=== PATIENT | female | born 1945 | race Caucasian/White ===

== ENCOUNTER 2020-07-14 15:00 | IRF | payer MEDICARE, BC, SELFPAY ==
--- NOTE | ~2020-07-14 | XR_ITS ---
EXAMINATION: XR chest 1V portable INDICATION: Shortness of breath, recent chest tube removal TECHNIQUE: Portable AP chest at 1316 hours COMPARISON: None available FINDINGS: There are bilateral pleural effusions, right greater than left. Displaced fractures of the right third through ninth ribs are noted. There is no pneumothorax. There are airspace opacities of t he lung bases, right greater than left. The heart size is normal. IMPRESSION: 1. Displaced fractures of the right third through ninth ribs. 2. Small pleural effusions, right greater than left. 3. Bibasilar airspace opacities, likely passive atelectasis. Reviewed, dictated and finalized at location A.
[2020-07-14 14:55] VITALS: BP 123/70; PULSE 100; RESP 20; TEMP 36.6; O2SAT 93
--- NOTE | 2020-07-14 15:30 | PM.IMHP ---
H&P: HPI History of Present Illness Date/Time: 07/14/20 16:31 Chief complaint: Rib fx's 3-9, A-FIB Narrative: Iesha Carbone is a 74 year old female she is right-handed and is here with the primary rehab impairment category of orthopedic/other The etiologic diagnosis is mildly displaced fractures of the right 3rd through 9th ribs secondary to a fall. The patient was examined [id number] because the examiner on July 14, 2020 at 3:30 p.m. H&P The patient is 74-year-old right-handed with a past medical history of hypertension who presented to a local hospital on July 01, 2020 after being found down in the basement floor by her . The patient reported being down for about 5 hours and hitting her head and falling on her right side. There was no reported loss of consciousness however she cannot be sure. The imaging demonstrated right rib fractures 3 through 9 and pneumo hemothorax. She was transferred to [facility] the same day. The patient had placement of right chest tube. Then she was noted to have a new onset of atrial fibrillation with rapid ventricular response. Cardiology was consulted and the patient was started on Cardizem drip. The rapid ventricular response remained uncontrolled and Cardiology titrated the Cardizem up and recommending anticoagulation with heparin or apixaban once cleared by the orthopedic/trauma. Cardiology also thought that the poor pain control might be contributing to the atrial fibrillation and heart rate elevations. Cardizem was ultimately weaned of and metoprolol tartrate was initiated at 12.5 milligram twice a day and heparin IV drip was added. The patient has been weaned from the heparin drip for over 24 hours and the rate is adequately controlled with diltiazem XR 240 milligram daily p.o. the patient was scheduled to undergo a [facility] TS procedure on July 04, 2020 however it was not completed due to intubation difficulty. There were multiple attempts and bedside bronchoscopy was performed with the of the question of thick mucus. She was extubated on July 05, 2020 and epidural was placed overnight for pain control. On July 06, 2020 the epidural was removed because it was not functioning properly. An echocardiogram on July 09, 2020 showed an ejection fraction of 70%. Currently the patient's pain is controlled with scheduled Tylenol and ibuprofen, lidocaine patches and Skelaxin and oxycodone p.r.n. patient is currently on room air. Patient will be discharged to rehab on Eliquis 5 milligram b.i.d. for DVT prophylaxis and this will be continued on to the patient sees a hydrogen operator for follow-up in 1 month. The patient has not traveled outside the [place] or had contact with someone who is ill that has traveled outside the [place] in the past 21 days. The patient has not traveled to an area of the [place] that is experiencing known transmission of the Coronavirus and has not had close personal contact with anyone that has. The patient does not have a fever. The patient is not experiencing lower respiratory illness symptoms. The patient had a negative COVID test on June 30, 2020 The therapies were initiated at the acute care facility and the patient was transferred to us from [facility] on July 14, 2020 The patient has had no major surgery in the last 10 days. The patient has had no falls in the past year. The patient has had no falls in the injury with injury in the past year. Past medical history hypertension Past surgical history breast implant and subsequent implant removal. Social history The patient has never smoked or abused drugs occasional alcohol use. Patient lives at home with her Leon who is able to assisted after discharge from rehab. They live in a 2 story home with the basement. There are 14 steps to the bathroom in 3 steps to enter the patient was independent in all ADLs prior with no assistive devices. The patient stated she has not had any major campos
--- NOTE | 2020-07-14 15:53 | PC.NURSE ---
This patient, Iesha Carbone, was admitted to [facility] Room 225-01. Patient/family oriented to hospital policies and general routines including ID bracelet, bed and alarms, visiting hours, pain management, procedures, bathroom and other care routines, personal items, smoking policy, room service/diet, and visiting hours. Information on how to activate the Rapid Response Team has been discussed. Patient/Family are encouraged to report perceived risks to care and to ask questions if they do not understand what they are told or what they should do.
[2020-07-14 16:18] VITALS: BMI 33.6
[2020-07-14 16:37] VITALS: BMI 36.9
[2020-07-14] MEDS: guaiFENesin 12 HR 600 MG TABCR PO (20:26)
[2020-07-14] MEDS: oxyCODONE HCL (*CRX) 5 MG TAB IR PO (20:40)
[2020-07-14 22:00] VITALS: BP 151/74; PULSE 93; RESP 19; TEMP 36.5; O2SAT 94
[2020-07-15] MEDS: oxyCODONE HCL (*CRX) 5 MG TAB IR PO ×2 (03:51→20:23)
[2020-07-15 05:26] LABS: Basophils Percent Auto 0.6 % (0.2-1.2); Eosinophils Absolute Auto 0.3 K/mm3 (0-0.3); Eosinophils Percent Auto 4.5 % (0-4.4); Hematocrit 27.5 % (37.0-47.0); Hemoglobin 8.9 g/dL (12.0-15.0); Immature Granulocyte Absolute 0.03 K/mm3 (0.00-0.031); Immature Granulocyte Percent A 0.4 % (0-0.5); Lymphocytes Absolute Auto 0.95 K/mm3 (0.9-3.2); Lymphocytes Percent Auto 13.1 % (18.3-44.2); Mean Corpuscular HGB Conc 32.4 g/dl (32-36); Mean Corpuscular Hemoglobin 32.2 pg (26-34); Mean Corpuscular Volume 99.6 fl (80-100); Mean Platelet Volume 9.2 fl (7.4-10.4); Monocytes Absolute Auto 0.6 K/mm3 (0.1-0.6); Monocytes Percent Auto 8.4 % (2.6-8.5); Neutrophils Absolute Auto 5.3 K/mm3 (1.3-6.7); Platelet Count Result 441 k/mm3 (150-375); Red Blood Count 2.76 M/mm3 (4.2-5.4); Red Cell Distribution Width 15.3 % (11.5-14.5); White Blood Count 7.3 K/mm3 (4.5-10.0)
[2020-07-15 05:40] LABS: Anion Gap 6 mmol/L (8-16); Blood Urea Nitrogen 14 mg/dL (7-17); Calcium 8.7 mg/dL (8.4-10.2); Carbon Dioxide 26 mmol/L (22-30); Chloride 102 mmol/L (98-107); Estimated CRCL calculation 78 ml/min; Estimated Glomerular Filt Rate > 60; Glucose 106 mg/dL (65-105); Potassium 4.2 mmol/L (3.4-5.0); Sodium 134 mmol/L (137-145)
[2020-07-15] MEDS: guaiFENesin 12 HR 600 MG TABCR PO ×2 (05:45→17:02)
[2020-07-15 06:00] VITALS: BP 147/76; PULSE 103; RESP 19; TEMP 36.2; O2SAT 93
[2020-07-15] MEDS: ACETAMINOPHEN 500 MG TABLET 1000 MG PO ×3 (08:47→17:01)
[2020-07-15] MEDS: APIXABAN 5 MG TABLET PO ×2 (08:47→17:02)
[2020-07-15] MEDS: CHOLECALCIFEROL 1,000 UNITS TABLET 1000 UNITS PO (08:48)
[2020-07-15] MEDS: LIDOCAINE 5% PATCH 1 PATCH TOPICAL (08:48)
[2020-07-15] MEDS: polyethylene glycoL 3350 17 GM POWD.PACK PO (08:48)
[2020-07-15] MEDS: METAXALONE 800 MG TABLET PO (08:48)
[2020-07-15 13:54] VITALS: BMI 36.9
[2020-07-15 14:00] VITALS: BP 157/79; PULSE 115; RESP 16; TEMP 36.8; O2SAT 93
--- NOTE | 2020-07-15 15:06 | PCNSR ---
On 07/15/20, the student, Halley Black, provided care and completed [facility] documentation on this patient. I have reviewed the student's documentation and agree with the findings.
--- NOTE | 2020-07-15 15:56 | RPD ---
INDIVIDUALIZED PLAN OF CARE FOR Iesha Carbone Brief Synthesis of Pre-Admission Screen, Post-Admission Evaluation and Therapy Evaluations: The patient presents to rehab for lost function due multiple rib fractures and new onset atrial fibrillation with RVR. Comorbidities include atrial fibrillation with RVR, hemopneumothorax, HTN, dyspnea on exertion, ABLA, hypercholesterolemia, diverticulosis, hypokalemia, hypocalcemia, and hyperglycemia. Post-op complications have included ABLA, acute post-traumatic pain, hemopneumothorax, HTN, dyspnea on exertion, hypercholesterolemia, hypokalemia, hypocalcemia, and hyperglycemia. The complexity of the patient's medical management, nursing, and therapy needs require an inpatient rehab hospital stay with a physician-led interdisciplinary team approach. The patient?s needs will be best met in an intensive program vs. at a lower level of care. The patient requires physician services for medical oversight, management of post-traumatic complications in setting of present comorbidities, and pain management. The patient requires nursing services for DVT prophylactics, cardiac observation, medication management and education, pressure relief, and wound care. Deficits include:ADLs, Balance, Endurance, Family Training/Education, Mobility, Pain Management, ROM, Safety, Strength, and Transfers. Hot Dip Plater/Case Management for: Discharge Planning and Patient/Family Counseling Physical Therapy: 5 days per week for 90 minutes. Treatments may include: Therapeutic Exercise, Gait Training, Neuromuscular Re-education, Transfer Training, Community Reintegration, Bed Mobility, Patient/Family Education, Wheelchair Mobility Group Therapy/Concurrent Therapy Rationales: -Improve attention span during functional activities in a distracted environment. -Enhance problem solving and/or adequate judgment skills during functional activities in a distracted environment. -Promote increased safety awareness in a distracted environment to reduce fall risk with functional tasks, transfers, and ambulation to allow a more safe, self-sufficient return to the home environment. -Improve dynamic balance skills to promote safety and independence with functional activities in a distracted environment for maximum gain. Occupational Therapy: 5 days per week for 90 minutes. Treatments may include: Therapeutic Exercise, Therapeutic Activity, Cognitive Training, Self-Care Transfer Training, Community Reintegration, Home Management, Patient/Family Education, Wheelchair Mobility Training, Energy Conservation Training Group Therapy/Concurrent Therapy Rationales: -Allow therapist to observe and teach generalization and carry-over of skills learned in individual therapy. -Enhance problem solving and sequencing skills during therapeutic activities in a distracted environment. -Promote increased safety awareness in a realistic setting to reduce fall risk with functional tasks due to visual and verbal distractions. -Increase functional level with ADLs, ADL transfers and use of adaptive equipment through therapeutic activities with others while promoting safety to allow a more safe, self-sufficient return home. Medical Prognosis: Good Anticipated Length of Stay: 10 days Rehab Goals: Eating Goal: 06-Independent Oral Hygiene Goal: 06-Independent Toileting Hygiene Goal: 06-Independent Shower/Bathe Self Goal: 06-Independent Upper Body Dressing Goal: 06-Independent Lower Body Dressing Goal: 06-Independent Putting On/Taking Off Footwear Goal: 06-Independent Rolling Left and Right Goal: 06-Independent Sit to Lying Goal: 06-Independent Lying to Sitting on Side of Bed Goal: 06-Independent Sit to Stand Goal: 06-Independent Chair/Yys-lm-Sjoma Transfer Goal: 06-Independent Toilet Transfer Goal: 06-Independent Car Transfer Goal: 06-Independent Walk 10' Goal: 06-Independent Walk 50' with Two Turns Goal: 06-Independent Walk 150' Goal: 06-Independent Walk 10' on Uneven Surface Goal
[2020-07-15 20:00] VITALS: PULSE 97; RESP 18; O2SAT 97
[2020-07-15 20:19] VITALS: BP 146/84; PULSE 97; RESP 18; TEMP 36.6; O2SAT 97
[2020-07-16 05:19] VITALS: BP 143/80; PULSE 99; RESP 20; TEMP 36.3; O2SAT 94
[2020-07-16] MEDS: guaiFENesin 12 HR 600 MG TABCR PO ×2 (06:56→18:29)
[2020-07-16] MEDS: APIXABAN 5 MG TABLET PO ×2 (08:45→17:40)
[2020-07-16] MEDS: ACETAMINOPHEN 500 MG TABLET 1000 MG PO ×3 (08:45→17:40)
[2020-07-16] MEDS: LIDOCAINE 5% PATCH 1 PATCH TOPICAL (08:46)
[2020-07-16] MEDS: CHOLECALCIFEROL 1,000 UNITS TABLET 1000 UNITS PO (08:46)
[2020-07-16] MEDS: polyethylene glycoL 3350 17 GM POWD.PACK PO (08:46)
[2020-07-16] MEDS: METAXALONE 800 MG TABLET PO (08:47)
--- NOTE | 2020-07-16 09:55 | PCPTNOTE ---
Iesha Carbone was evaluated for a wheeled walker on 07/16/2020 by this physical therapist. The wheeled walker will resolve patient's mobility limitations and will be used for mobility within the home. The patient can safely use the wheeled walker. ?The wheeled walker will resolve the patient?s mobility deficits, including gait, transfers and mobility.
[2020-07-16] MEDS: SALINE 0.65% NAS SOLN 44 ML BTL 1 SPRAY NASAL (12:11)
--- NOTE | 2020-07-16 12:27 | WPDNEURORHBP ---
Subjective Date/time seen: 07/16/20 12:27 Interval history: this 74-year-old woman is here with multiple rib fractures primary in the right side and in that background has had the atrial fibrillation which he continues to have and during therapy the heart rate will go up to 180 which is of concern in spite of being on the appropriate medication I have requested cardiology consult from our team to see if there is anything further needs to be done the medical treatment of her underlying atrial fibrillation the patient denies any headache nausea vomiting chest pain shortness of breath she does have a pain over the fractured ribs though Review of Systems Review of Systems: All systems reviewed & are unremarkable except as noted in HPI and below Functional Status Ambulation Ability Ability to Ambulate 10 Feet: Contact Guard Ability to Ambulate 50 Feet With 2 Turns: Contact Guard Ability to Ambulate 150 Feet: Minimum Assistance X 2 Ambulation Assistive Devices: Walker, Wheeled Transfers Ability Ability to Transfer In/Out of Chair: Contact Guard Exam Narrative: Exam Narrative: the patient is awake alert well oriented she feels fatigue and tired otherwise denies any headache nausea vomiting chest pain occasional shortness of breath is however with the therapy with heart rate goes up to 160 and 180 otherwise usually to remains around 80 and 110 of course in AFib ENT examination normal eye examination is normal strength is improving no lateralizing deficits noted apart from generalized weakness abdomen soft nontender extremities reveal no deformities Objective Data Vital Signs Vital Signs: Vital Signs - 24 hr 07/15/20 14:00 07/15/20 20:00 07/15/20 20:19 Temperature 36.8 C 36.6 C Pulse Rate 115 H 97 97 Respiratory Rate 16 18 18 Blood Pressure 157/79 H 146/84 H Pulse Oximetry 93 97 97 07/16/20 05:19 Temperature 36.3 C L Pulse Rate 99 Respiratory Rate 20 Blood Pressure 143/80 H Pulse Oximetry 94 Intake/Output Intake/Output: Intake & Output 07/13/20 07/14/20 07/15/20 07/16/20 23:59 23:59 23:59 23:59 Intake Total 240 680 360 Balance 240 680 360 Meds/Results Medications: Active Medications Generic Name Dose Route Start Last Admin Trade Name Freq PRN Reason Stop Dose Admin Acetaminophen 1,000 mg 07/15/20 09:00 07/16/20 12:10 Acetaminophen 500 Mg Tablet PO 1,000 mg TID VIRA Administration Albuterol 2.5 mg 07/14/20 18:44 Albuterol Sulfate Neb 2.5 Mg/0.5 Ml Inh INHALATION Q6HRT PRN Shortness Of Breath Or Wheezing Apixaban 5 mg 07/15/20 09:00 07/16/20 08:45 Apixaban 5 Mg Tablet PO 5 mg BID VIRA Administration Diltiazem HCl 240 mg 07/15/20 09:00 07/16/20 08:46 Diltiazem Hcl Cd 240 Mg Cap.Er.24h PO 240 mg DAILY VIRA Administration Guaifenesin 600 mg 07/14/20 18:00 07/16/20 06:56 Guaifenesin 12 Hr 600 Mg Tabcr PO 600 mg Q12H VIRA Administration Ipratropium [place] 0.5 mg 07/14/20 18:45 Ipratropium Br 0.02% Inh Soln 0.5 Mg/2.5 Ml Vial INHALATION Q6HRT PRN Shortness Of Breath Or Wheezing Lidocaine 1 patch 07/15/20 09:00 07/16/20 08:46 Lidocaine 5% Patch TOPICAL 1 patch DAILY VIRA Administration Metaxalone 800 mg 07/14/20 18:27 07/16/20 08:47 Metaxalone 800 Mg Tablet PO 800 mg TID PRN Administration Muscle Spasm Oxycodone HCl 5 mg 07/14/20 18:27 07/15/20 20:23 Oxycodone Hcl (*Crx) 5 Mg Tab Ir PO 5 mg Q4H PRN Administration Pain 7-10 Polyethylene Glycol 17 gm 07/15/20 09:00 07/16/20 08:46 Polyethylene Glycol 3350 17 Gm Powd.Pack PO 17 gm DAILY VIRA Administration Sodium Chloride 1 spray 07/16/20 09:10 07/16/20 12:11 Saline 0.65% Alli Soln 44 Ml Btl NASAL 1 spray Q4H PRN Administration Congestion Vitamin D 1,000 units 07/15/20 09:00 07/16/20 08:46 Cholecalciferol 1,000 Units Tablet PO 1,000 units DAILY VIRA Administration Progress Note: A&P Assessment and P
[2020-07-16 14:00] VITALS: BP 128/97; PULSE 97; RESP 20; TEMP 36.6; O2SAT 96
--- NOTE | 2020-07-16 15:34 | PM.CNCAR ---
Assessment and Plan Assessment and plan (1) Atrial fibrillation: Code(s): I48.91 - Unspecified atrial fibrillation Status: Acute Assessment and Plan: Patient is a 74 year-old woman with history of hypertension, CVA (2003, hemorrhagic, basal ganglia, with severely elevated BP), atrial fibrillation with rapid ventricular response, who is seen in cardiac consultation for atrial fibrillation with rapid ventricular response. -She has new onset atrial fibrillation with rapid ventricular response noted after her presenting fall. -Improve rate control with addition of metoprolol tartrate 25 mg bid. -Continue diltiazem ER 240 mg qd. -Continue apixaban. If she has recurrent falls, consider transition of apixaban to ASA. -She had normal thyroid studies at [facility]. -Obtain Mg, repeat BMP, CBC for anemia. -Obtain EKG. -Recently, she had echo 07/09/20 ([facility]): mild-moderately dilated (4.3 cm) ascending aorta, normal LV size, mild LVH, normal LVEF 70%, mild , mild pulmonary HTN (42 mmHg). -Anticipate outpatient evaluation for ischemia with Lexiscan nuclear stress testing. (2) Hypertension: Code(s): I10 - Essential (primary) hypertension Status: Acute Assessment and Plan: -BP mildy elevated. -Montor with addition of metoprolol. (3) Ascending aorta dilation: Code(s): I77.810 - Thoracic aortic ectasia Status: Acute Assessment and Plan: -Recently, she had CT 07/03/20 ([facility]): ectatic ascending aorta 4.5 x 4.7 cm. -Began metoprolol. -Needs f/u imaging as an outpatient. History of Present Illness History of Present Illness Consult date/time: 07/16/20 15:34 Patient is a 74 year-old woman with history of hypertension, CVA (2003, hemorrhagic, basal ganglia, with severely elevated BP), atrial fibrillation with rapid ventricular response, who is seen in cardiac consultation for atrial fibrillation with rapid ventricular response. Patient is currently in rehab at [facility] and was noted to have afib with RVR with activity, with HR increased to 160-180 bpm with activity. Previously, patient presented to [facility] 06/30/20 following fall. She reported dizziness while walking and fell, without syncope. She sustained displaced fractures to right 3rd through 9th ribs, with hemothorax, requiring right chest tube, subsequently removed. At [facility], she was noted to be in new onset afib with RVR. Patient denies any history of DC or CHF. She denies left chest pain, but reports right chest pleuritic pain. She reports occasional exertional dyspnea. She denies palpitations, edema, or PND. She denies tobacco use and consumes 1 drink of alcohol weekly. This admission, CXR 07/16/20: small pleural effusions, R > L. Recently, she had echo 07/09/20 ([facility]): mild-moderately dilated (4.3 cm) ascending aorta, normal LV size, mild LVH, normal LVEF 70%, mild , mild pulmonary HTN (42 mmHg). Recently, she had CT 07/03/20 ([facility]): ectatic ascending aorta 4.5 x 4.7 cm. Reason For Visit: Rib fx's 3-9, A-FIB Review of Systems Review of Systems: All systems reviewed & are unremarkable except as noted in HPI and below PMFSH Past Medical History Medical History Cerebral arteriosclerosis with history of previous stroke Hypertension Family History Family History Mother Colon cancer Social History Social History Smoking status: Never smoker Alcohol intake: former Drinks per week: 1 Substance use: never Spiritual care concerns: Yes Meds Home Medications and Allergies Home Medications Medication Instructions Recorded Confirmed Type acetaminophen 500 mg PO QID PRN 07/14/20 07/14/20 History apixaban 5 mg PO BID 07/14/20 07/14/20 History cholecalciferol (vitamin D3) 25 mcg PO DAILY 07/14/20 07/14/20 History diltiazem HCl 240 mg PO DAILY 07/14/20
--- NOTE | 2020-07-16 16:38 | PC.NURSE ---
educational material given to patient and re/to chest wall pain, eliquis, atrial fib, and rib fractures
[2020-07-16 22:00] VITALS: BP 151/83; PULSE 91; RESP 19; TEMP 36.7; O2SAT 95
[2020-07-16 22:04] VITALS: PULSE 88
[2020-07-16] MEDS: METOPROLOL TARTRATE 25 MG TABLET PO (22:04)
[2020-07-17] MEDS: BENZOCAINE/MENTHOL (*BKC) 18 EA LOZENGE 1 LOZENGE PO (01:03)
--- NOTE | 2020-07-17 05:00 | ECG_ITS ---
Measurements Intervals [place] Rate: 136 P: [place]: 0 QRS: -6 QRSD: 107 T: 155 QT: 287 QTc: 432 Interpretive Statements ATRIAL FIBRILLATION WITH RAPID VENTRICULAR RESPONSE DELAYED PRECORDIAL R/S TRANSITION LEFT VENTRICULAR HYPERTROPHY WITH ST-T CHANGE INFERIOR INFARCT, AGE INDETERMINATE ST-T WAVE ABNORMALITY IN LAT/HIGH LAT LEADS- CONSIDER ISCHEMIA ABNORMAL ECG Electronically Signed On 07-17-2020 11:59:33 CDT by Baldev Ho D.O.
[2020-07-17 05:28] LABS: Basophils Percent Auto 0.5 % (0.2-1.2); Eosinophils Absolute Auto 0.3 K/mm3 (0-0.3); Eosinophils Percent Auto 4.9 % (0-4.4); Hematocrit 28.6 % (37.0-47.0); Hemoglobin 9.2 g/dL (12.0-15.0); Immature Granulocyte Absolute 0.03 K/mm3 (0.00-0.031); Immature Granulocyte Percent A 0.5 % (0-0.5); Lymphocytes Absolute Auto 1.02 K/mm3 (0.9-3.2); Lymphocytes Percent Auto 16.8 % (18.3-44.2); Mean Corpuscular HGB Conc 32.2 g/dl (32-36); Mean Corpuscular Hemoglobin 32.3 pg (26-34); Mean Corpuscular Volume 100.4 fl (80-100); Monocytes Absolute Auto 0.6 K/mm3 (0.1-0.6); Monocytes Percent Auto 9.4 % (2.6-8.5); Neutrophils Absolute Auto 4.1 K/mm3 (1.3-6.7); Neutrophils Percent Auto 67.9 % (45.5-73.1); Platelet Count Result 475 k/mm3 (150-375); Red Blood Count 2.85 M/mm3 (4.2-5.4); Red Cell Distribution Width 15.3 % (11.5-14.5); White Blood Count 6.1 K/mm3 (4.5-10.0)
[2020-07-17 05:43] LABS: Anion Gap 7 mmol/L (8-16); Blood Urea Nitrogen 12 mg/dL (7-17); Calcium 8.9 mg/dL (8.4-10.2); Carbon Dioxide 27 mmol/L (22-30); Chloride 103 mmol/L (98-107); Estimated CRCL calculation 90 ml/min; Estimated Glomerular Filt Rate > 60; Glucose 109 mg/dL (65-105); Sodium 137 mmol/L (137-145)
[2020-07-17 06:00] VITALS: BP 144/75; PULSE 94; RESP 19; TEMP 36.1; O2SAT 95
[2020-07-17] MEDS: guaiFENesin 12 HR 600 MG TABCR PO (06:02)
[2020-07-17] MEDS: ONDANSETRON HCL ODT 4 MG TABLET PO (10:03)
[2020-07-17] MEDS: LIDOCAINE 5% PATCH 1 PATCH TOPICAL (10:04)
[2020-07-17] MEDS: APIXABAN 5 MG TABLET PO (10:04)
[2020-07-17] MEDS: METAXALONE 800 MG TABLET PO (10:04)
[2020-07-17 10:05] VITALS: PULSE 96
[2020-07-17] MEDS: METOPROLOL TARTRATE 25 MG TABLET PO (10:05)
[2020-07-17] MEDS: CHOLECALCIFEROL 1,000 UNITS TABLET 1000 UNITS PO (10:05)
[2020-07-17] MEDS: ACETAMINOPHEN 500 MG TABLET 1000 MG PO (10:07)
--- NOTE | 2020-07-17 10:48 | PM.PNCARD ---
Progress Note: A&P Assessment and Plan (1) Atrial fibrillation: Code(s): I48.91 - Unspecified atrial fibrillation Status: Acute Assessment and Plan: Patient is a 74 year-old woman with history of hypertension, CVA (2004, hemorrhagic, basal ganglia, with severely elevated BP), atrial fibrillation with rapid ventricular response, who is seen in cardiac consultation for atrial fibrillation with rapid ventricular response. she is back in AFib today with rapid ventricular response again, she needs to be transferred to telemetry start Cardizem drip for better rate control. -Recently, she had echo 07/09/20 ([facility]): mild-moderately dilated (4.3 cm) ascending aorta, normal LV size, mild LVH, normal LVEF 70%, mild , mild pulmonary HTN (42 mmHg). -Anticipate outpatient evaluation for ischemia with Lexiscan nuclear stress testing. (2) Hypertension: Code(s): I10 - Essential (primary) hypertension Status: Acute Assessment and Plan: -BP mildy elevated. -Montor with addition of metoprolol. (3) Ascending aorta dilation: Code(s): I77.810 - Thoracic aortic ectasia Status: Acute Assessment and Plan: -Recently, she had CT 07/03/20 ([facility]): ectatic ascending aorta 4.5 x 4.7 cm. -Began metoprolol. -Needs f/u imaging as an outpatient. Subjective Date/time seen: 07/17/20 10:48 She feels fair today, complains of nausea, noted to have tachycardia again today. No chest pain no abdominal pain Exam Const: General: cooperative, healthy appearing, no acute distress, well developed and alert Nutritional Appearance: well nourished Orientation/consciousness: oriented to person, oriented to place, oriented to time and patient oriented x3 HENMT: Head: normal to inspection and normocephalic Ears: external ears normal General nose exam: No nasal discharge present Mouth: Yes moist mucous membranes Eyes: General: appearance normal, both eyes and all related structures Conjunctivae: conjunctivae normal Sclera: sclerae normal Pupils: Equal, round and reactive pupils present EOM: EOMs intact bilaterally Neck: Neck: normal visual inspection and No JVD Carotids: normal carotid upstroke and no bruits Chest: Chest palpation & inspection: localized rib tenderness with anteroposterior compression Resp: Effort & Inspection: normal respiratory effort, able to speak in complete sentences and no respiratory distress Auscultation: diminished lung sounds on the right Cardio: Jugular venous distension: no JVD Palpation: normal PMI Rate: regular rate Rhythm: abnormal rhythm irregularly irregular Heart sounds: S1 normal heart sound present, S2 normal heart sound present and Murmur heart sound present systolic I/ Peripheral pulses: Peripheral pulses 2+ throughout GI: Inspection: normal to inspection and non-distended Skin: General skin exam: normal color Rashes: no rashes Neuro: General: oriented to person, oriented to place, oriented to time, patient oriented x3, moves all extremities, no focal motor deficits and CN's II-XI intact bilaterally Cranial nerves: Yes Equal, round and reactive pupils present Cognition (Neuro): normal cognition Speech: normal speech Motor exam (neuro): 5/5 motor strength present throughout Extrem: General: normal to inspection Psych: Appearance: grossly normal Mental Status: mental status grossly normal Objective Data Vital Signs Vital Signs: Vital Signs - 24 hr 07/16/20 14:00 07/16/20 22:00 07/16/20 22:04 Temperature 36.6 C 36.7 C Pulse Rate 97 91 88 Respiratory Rate 20 19 Blood Pressure 128/97 H 151/83 H Pulse Oximetry 96 95 07/17/20 06:00 07/17/20 10:05 Temperature 36.1 C L Pulse Rate 94 96 Respiratory Rate 19 Blood Pressure 144/75 H Pulse Oximetry 95 Intake/Output Intake/Output: Intake & Output 07/14/20 07/15/20 07/16/20 07/17/20 23:59 23:59 23:59 23:59 Intake Total 240 337 840 480 Balance 240 023 840 480 Meds/Results Medications: Ac
--- NOTE | 2020-07-17 12:18 | WPDNEURORHBP ---
Subjective Date/time seen: 07/17/20 12:18 Interval history: this 74-year-old woman is here because of multiple rib fracture and also status post chest tube placement for the hemopneumothorax from which she is improving however the issue at hand is predominantly atrial fibrillation with rapid ventricular response for which I have consulted the him assistant here and recommends for the patient to be monitored on the telemetry for better control of her heart rate with Cardizem drip which I have no problem with the patient otherwise remains stable except occasional nausea and vomiting needing Zofran denies any chest pain she does have a history of asthma for which appropriate inhaler has been recommended by the him assistant whom I spoke with briefly prior to him leaving the floor The patient denies any lateralizing symptoms but she generally weak fatigue and exhausted and no lateralizing deficits and Review of Systems Review of Systems: All systems reviewed & are unremarkable except as noted in HPI and below Functional Status Ambulation Ability Ability to Ambulate 10 Feet: Contact Guard Ability to Ambulate 50 Feet With 2 Turns: Contact Guard Ability to Ambulate 150 Feet: Minimum Assistance X 2 Ambulation Assistive Devices: Walker, Wheeled Transfers Ability Ability to Transfer In/Out of Chair: Standby Assistance Exam Narrative: Exam Narrative: patient is awake and alert well oriented not any distress head is normocephalic eyes here no so normal neck is supple lungs reveal bilateral rhonchi cardiovascular examination reveals irregularly irregular rhythm with heart rate around 100 abdomen is soft nontender extremities reveal no deformities no lateralizing focal motor deficit or sensory deficit is noted The site of the chest tube placement is clean and healthy in the chest x-ray self explanatory Objective Data Vital Signs Vital Signs: Vital Signs - 24 hr 07/16/20 14:00 07/16/20 22:00 07/16/20 22:04 Temperature 36.6 C 36.7 C Pulse Rate 97 91 88 Respiratory Rate 20 19 Blood Pressure 128/97 H 151/83 H Pulse Oximetry 96 95 07/17/20 06:00 07/17/20 10:05 Temperature 36.1 C L Pulse Rate 94 96 Respiratory Rate 19 Blood Pressure 144/75 H Pulse Oximetry 95 Intake/Output Intake/Output: Intake & Output 07/14/20 07/15/20 07/16/20 07/17/20 23:59 23:59 23:59 23:59 Intake Total 240 680 840 480 Balance 240 680 840 480 Meds/Results Medications: Active Medications Generic Name Dose Route Start Last Admin Trade Name Freq PRN Reason Stop Dose Admin Acetaminophen 1,000 mg 07/15/20 09:00 07/17/20 10:07 Acetaminophen 500 Mg Tablet PO 1,000 mg TID VIRA Administration Albuterol 2.5 mg 07/14/20 18:44 Albuterol Sulfate Neb 2.5 Mg/0.5 Ml Inh INHALATION Q6HRT PRN Shortness Of Breath Or Wheezing Apixaban 5 mg 07/15/20 09:00 07/17/20 10:04 Apixaban 5 Mg Tablet PO 5 mg BID VIRA Administration Benzocaine 1 lozenge 07/17/20 00:15 07/17/20 01:03 Benzocaine/Menthol (*Bkc) 18 Ea Lozenge PO 1 lozenge PRN PRN Administration Sore Throat Diltiazem HCl 240 mg 07/15/20 09:00 07/17/20 10:05 Diltiazem Hcl Cd 240 Mg Cap.Er.24h PO 240 mg DAILY VIRA Administration Guaifenesin 600 mg 07/14/20 18:00 07/17/20 06:02 Guaifenesin 12 Hr 600 Mg Tabcr PO 600 mg Q12H VIRA Administration Ipratropium Mcintosh 0.5 mg 07/14/20 18:45 Ipratropium Br 0.02% Inh Soln 0.5 Mg/2.5 Ml Vial INHALATION Q6HRT PRN Shortness Of Breath Or Wheezing Lidocaine 1 patch 07/15/20 09:00 07/17/20 10:04 Lidocaine 5% Patch TOPICAL 1 patch DAILY VIRA Administration Metaxalone 800 mg 07/14/20 18:27 07/17/20 10:04 Metaxalone 800 Mg Tablet PO 800 mg TID PRN Administration Muscle Spasm Metoprolol Tartrate 25 mg 07/16/20 21:30 07/17/20 10:05 Metoprolol Tartrate 25 Mg Tablet PO 25 mg Q12HR VIRA Administration Ondansetron HCl 4 mg 07/17/20 09:51 07/17/20 10:03
--- NOTE | 2020-07-18 08:27 | PCPTNOTE ---
Patient unable to receive full minutes this date due to transfer to acute medical floor secondary to cardiac issues.
[2020-07-19 16:33] VITALS: BP 119/65; PULSE 80; RESP 16; TEMP 36.3; O2SAT 96
[2020-07-19] MEDS: dilTIAZem HCL TAB 30 MG, dilTIAZem HCL TAB 60 MG 90 MG PO ×2 (17:44→23:48)
--- NOTE | 2020-07-19 18:43 | PC.NURSE ---
Spoke with Dr Coronel regarding Eliquis and that it was not continued by hospitalist for her return to [facility]. Dr Coronel wanted medication to be resumed due to the fact that patient has a higher risk for stroke without the medication. Patient was educated about the risks versus benefits of taking the medication. Patient also made aware that she can also refuse the medication. Patient would like her neurologist to be updated and included in the discussion about the medication due to her having an ascending aortic aneurysm . Patient updated that may not be able to get ahold of her neurologist until wednesday. Patient and spouse okay with that. Her neurologist is Dr Ja Samaniego at [facility] and number [phone]. Dr Lisha العلي and updated as well and will also speak with patient tomorrow 07/20/20. will continue to monitor.
[2020-07-19] MEDS: IPRATROPIUM BR 0.02% INH SOLN 0.5 MG/2.5 ML VIAL INHALATION (20:29)
[2020-07-19] MEDS: ALBUTEROL SULFATE NEB 2.5 MG/0.5 ML INH INHALATION (20:29)
[2020-07-19 20:32] VITALS: PULSE 95; RESP 18
[2020-07-19 20:40] VITALS: BP 124/73; PULSE 70; RESP 18; TEMP 36.4; O2SAT 95
[2020-07-19] MEDS: APIXABAN 5 MG TABLET PO (20:44)
[2020-07-19 20:45] VITALS: PULSE 70
[2020-07-19] MEDS: METOPROLOL TARTRATE 25 MG TABLET PO (20:45)
[2020-07-19] MEDS: guaiFENesin 12 HR 600 MG TABCR PO (20:46)
[2020-07-19] MEDS: FLUTICASONE PROPIONATE 0.05% NA SPR 16 GM BTL (*BKC) 1 SPRAY NASAL (20:46)
[2020-07-19] MEDS: ACETAMINOPHEN 500 MG TABLET 1000 MG PO (20:47)
[2020-07-20] VITALS (14 sets, daily range): BP systolic 116–143; BP diastolic 67–86; PULSE 84–94; RESP 16–22; TEMP 35.8–36.2; O2SAT 96–99
[2020-07-20] MEDS: IPRATROPIUM BR 0.02% INH SOLN 0.5 MG/2.5 ML VIAL INHALATION ×4 (02:57→20:54)
[2020-07-20] MEDS: ALBUTEROL SULFATE NEB 2.5 MG/0.5 ML INH INHALATION ×4 (02:57→20:54)
[2020-07-20] MEDS: ACETAMINOPHEN 500 MG TABLET 1000 MG PO ×3 (05:46→20:48)
[2020-07-20] MEDS: dilTIAZem HCL TAB 30 MG, dilTIAZem HCL TAB 60 MG 90 MG PO ×4 (05:46→23:10)
[2020-07-20] MEDS: CHOLECALCIFEROL 1,000 UNITS TABLET 1000 UNITS PO (09:16)
[2020-07-20] MEDS: APIXABAN 5 MG TABLET PO ×2 (09:16→20:46)
[2020-07-20] MEDS: FLUTICASONE PROPIONATE 0.05% NA SPR 16 GM BTL (*BKC) 1 SPRAY NASAL ×2 (09:17→20:47)
[2020-07-20] MEDS: DIGOXIN TAB 125 MCG TABLET PO (09:17)
[2020-07-20] MEDS: guaiFENesin 12 HR 600 MG TABCR PO ×2 (09:17→20:46)
[2020-07-20] MEDS: LIDOCAINE 5% PATCH 1 PATCH TRANSDERM (09:18)
[2020-07-20] MEDS: LORATADINE 10 MG TABLET PO (09:18)
[2020-07-20] MEDS: METOPROLOL TARTRATE 25 MG TABLET PO ×2 (09:18→20:46)
[2020-07-20] MEDS: polyethylene glycoL 3350 17 GM POWD.PACK PO (09:18)
--- NOTE | 2020-07-20 10:02 | PM.PNCARD ---
Progress Note: A&P Assessment and Plan (1) Atrial fibrillation: Onset Date: ~06/2020 Code(s): I48.91 - Unspecified atrial fibrillation Status: Inactive Assessment and Plan: Patient is a 74 year-old woman with history of hypertension, CVA (2004, hemorrhagic, basal ganglia, with severely elevated BP), atrial fibrillation with rapid ventricular response, who is seen in cardiac consultation for atrial fibrillation with rapid ventricular response. she is back in AFib today with rapid ventricular response again, she needs to be transferred to telemetry start Cardizem drip for better rate control. -Recently, she had echo 07/09/20 (U): mild-moderately dilated (4.3 cm) ascending aorta, normal LV size, mild LVH, normal LVEF 70%, mild , mild pulmonary HTN (42 mmHg). -Anticipate outpatient evaluation for ischemia with Lexiscan nuclear stress testing. (2) Hypertension: Code(s): I10 - Essential (primary) hypertension Status: Chronic Assessment and Plan: -BP mildy elevated. -Montor with addition of metoprolol. (3) Ascending aorta dilation: Code(s): I77.810 - Thoracic aortic ectasia Status: Chronic Assessment and Plan: -Recently, she had CT 07/03/20 (U): ectatic ascending aorta 4.5 x 4.7 cm. -Began metoprolol. -Needs f/u imaging as an outpatient. Subjective Date/time seen: 07/20/20 10:02 she feels much better today, no chest pain except for occasional chest pain with the rib fracture upon deep inspiration but no shortness of breath no nausea Exam Const: General: cooperative, healthy appearing, no acute distress, well developed and alert Nutritional Appearance: well nourished Orientation/consciousness: oriented to person, oriented to place, oriented to time and patient oriented x3 HENMT: Head: normal to inspection and normocephalic Ears: external ears normal General nose exam: No nasal discharge present Mouth: Yes moist mucous membranes Eyes: General: appearance normal, both eyes and all related structures Conjunctivae: conjunctivae normal Sclera: sclerae normal Pupils: Equal, round and reactive pupils present EOM: EOMs intact bilaterally Neck: Neck: normal visual inspection and No JVD Carotids: normal carotid upstroke and no bruits Chest: Chest palpation & inspection: localized rib tenderness with anteroposterior compression Resp: Effort & Inspection: normal respiratory effort, able to speak in complete sentences and no respiratory distress Auscultation: diminished lung sounds on the right Cardio: Jugular venous distension: no JVD Palpation: normal PMI Rate: regular rate Rhythm: abnormal rhythm irregularly irregular Heart sounds: S1 normal heart sound present, S2 normal heart sound present and Murmur heart sound present systolic I/ Peripheral pulses: Peripheral pulses 2+ throughout GI: Inspection: normal to inspection and non-distended Skin: General skin exam: normal color Rashes: no rashes Neuro: General: oriented to person, oriented to place, oriented to time, patient oriented x3, moves all extremities, no focal motor deficits and CN's II-XI intact bilaterally Cranial nerves: Yes Equal, round and reactive pupils present Cognition (Neuro): normal cognition Speech: normal speech Motor exam (neuro): 5/5 motor strength present throughout Extrem: General: normal to inspection Psych: Appearance: grossly normal Mental Status: mental status grossly normal Objective Data Vital Signs Vital Signs: Vital Signs - 24 hr 07/19/20 16:33 07/19/20 20:32 07/19/20 20:40 Temperature 36.3 C L 36.4 C L Pulse Rate 80 95 70 Pulse Rate [At Rest Prior to Therapy Session] Respiratory Rate 16 18 18 Blood Pressure 119/65 124/73 Pulse Oximetry 96 95 Pulse Oximetry [At Rest Prior to Therapy Session] 07/19/20 20:45 07/20/20 02:50 07/20/20 02:59 Temperature Pulse Rate 70 94 94 Pulse Rate [At Rest Prior to Therapy Session] Respiratory Rate 18 18 Bloo
--- NOTE | 2020-07-20 14:32 | WPDNEURORHBP ---
Subjective Date/time seen: 07/20/20 14:32 74 years old lady with right-sided 3rd through 9th ribs fracture secondary to fall in addition to the history of atrial fibrillation, hypertension, receiving physical therapy and occupational therapy on the rehab floor. 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 as well for the atrial fibrillation has been on Cardizem drip as well and documented thoracic aortic ectasia chronic in nature Functional Status Ambulation Ability Ability to Ambulate 10 Feet: Standby Assistance Ability to Ambulate 50 Feet With 2 Turns: Standby Assistance Ability to Ambulate 150 Feet: Standby Assistance Ambulation Assistive Devices: Walker, Wheeled Transfers Ability Ability to Transfer In/Out of Chair: Standby Assistance Exam Narrative: Exam Narrative: reveals her to be awake alert in no obvious acute distress, head normocephalic, ear nose throat examination normal, neck is supple with no cervical bruit, heart irregular, lungs clear with no rhonchi or crepitations, abdomen is soft with no organomegaly, and neuro examination essentially unchanged Objective Data Vital Signs Vital Signs: Vital Signs - 24 hr 07/19/20 16:33 07/19/20 20:32 07/19/20 20:40 Temperature 36.3 C L 36.4 C L Pulse Rate 80 95 70 Pulse Rate [At Rest Prior to Therapy Session] Respiratory Rate 16 18 18 Blood Pressure 119/65 124/73 Pulse Oximetry 96 95 Pulse Oximetry [At Rest Prior to Therapy Session] 07/19/20 20:45 07/20/20 02:50 07/20/20 02:59 Temperature Pulse Rate 70 94 94 Pulse Rate [At Rest Prior to Therapy Session] Respiratory Rate 18 18 Blood Pressure Pulse Oximetry Pulse Oximetry [At Rest Prior to Therapy Session] 07/20/20 05:15 07/20/20 08:14 07/20/20 08:21 Temperature 35.8 C L Pulse Rate 85 92 92 Pulse Rate [At Rest Prior to Therapy Session] Respiratory Rate 20 Blood Pressure 141/67 H Pulse Oximetry 96 Pulse Oximetry [At Rest Prior to Therapy Session] 07/20/20 08:30 07/20/20 09:17 07/20/20 09:18 Temperature Pulse Rate 92 92 Pulse Rate [At Rest Prior to Therapy Session] 86 Respiratory Rate Blood Pressure Pulse Oximetry Pulse Oximetry [At Rest Prior to Therapy Session] 96 07/20/20 13:15 07/20/20 14:00 Temperature 36.2 C L Pulse Rate 90 92 Pulse Rate [At Rest Prior to Therapy Session] Respiratory Rate 20 Blood Pressure 116/74 Pulse Oximetry 96 Pulse Oximetry [At Rest Prior to Therapy Session] Intake/Output Intake/Output: Intake & Output 07/17/20 07/18/20 07/19/20 07/20/20 23:59 23:59 23:59 23:59 Intake Total 480 480 Balance 480 480 Meds/Results Medications: Active Medications Generic Name Dose Route Start Last Admin Trade Name Freq PRN Reason Stop Dose Admin Acetaminophen 1,000 mg 07/19/20 22:00 07/20/20 13:10 Acetaminophen 500 Mg Tablet PO 1,000 mg Q8HR VIRA Administration Albuterol 2.5 mg 07/19/20 20:00 07/20/20 13:13 Albuterol Sulfate Neb 2.5 Mg/0.5 Ml Inh INHALATION 2.5 mg Q6HRT VIRA Administration Apixaban 5 mg 07/19/20 21:00 07/20/20 09:16 Apixaban 5 Mg Tablet PO 5 mg Q12HR VIRA Administration Digoxin 125 mcg 07/20/20 09:00 07/20/20 09:17 Digoxin Tab 125 Mcg Tablet PO 125 mcg QAM VIRA Administration Diltiazem HCl 30 mg/ Diltiazem 90 mg 07/19/20 18:00 07/20/20 13:10 HCl 60 mg PO 90 mg Q6HR VIRA Administration Fluticasone Propionate 1 spray 07/19/20 21:00 07/20/20 09:17 Fluticasone Propionate 0.05% Na Spr 16 Gm Btl (*Bkc) NASAL 1 spray Q12HR VIRA Administration Guaifenesin 600 mg 07/19/20 21:00 07/20/20 09:17 Guaifenesin 12 Hr 600 Mg Tabcr PO 600 mg Q12HR VIRA Administration Ipratropium [place] 0.5 mg 07/19/20 20:00 07/20/20 13:13 Ipratropium Br 0.02% Inh Soln 0.5 M
[2020-07-20 23:32] LABS: Add Urine Microscopic? YES; Appearance Urine Clear (Clear); Bacteria Urine Trace /hpf; Bilirubin Urine Negative (Negative); Blood Urine Negative (Negative); Color Urine Yellow (Yellow); Glucose Urine UA Negative (Negative); Ketones Urine Negative (Negative); Leukocyte Esterase Ur 2+ LEU/UL (Negative); Nitrate Urine Positive (Negative); Protein Urine Negative (Negative); Squamous Epithelial Cell Urine Occasional /hpf (Few); Urobilinogen Urine Negative mg/dL (<2.0); WBC Urine >75 /hpf
[2020-07-21] VITALS (14 sets, daily range): BP systolic 120–144; BP diastolic 70–84; PULSE 75–93; RESP 16–20; TEMP 36.2–36.6; O2SAT 96–99
[2020-07-21] MEDS: ALBUTEROL SULFATE NEB 2.5 MG/0.5 ML INH INHALATION ×4 (02:59→20:52)
[2020-07-21] MEDS: IPRATROPIUM BR 0.02% INH SOLN 0.5 MG/2.5 ML VIAL INHALATION ×4 (02:59→20:52)
[2020-07-21] MEDS: ACETAMINOPHEN 500 MG TABLET 1000 MG PO ×3 (06:07→20:32)
[2020-07-21] MEDS: dilTIAZem HCL TAB 30 MG, dilTIAZem HCL TAB 60 MG 90 MG PO ×4 (06:07→23:41)
[2020-07-21] MEDS: FLUTICASONE PROPIONATE 0.05% NA SPR 16 GM BTL (*BKC) 1 SPRAY NASAL ×2 (09:05→20:31)
[2020-07-21] MEDS: LORATADINE 10 MG TABLET PO (09:05)
[2020-07-21] MEDS: DIGOXIN TAB 125 MCG TABLET PO (09:06)
[2020-07-21] MEDS: APIXABAN 5 MG TABLET PO ×2 (09:06→20:32)
[2020-07-21] MEDS: LIDOCAINE 5% PATCH 1 PATCH TRANSDERM (09:06)
[2020-07-21] MEDS: guaiFENesin 12 HR 600 MG TABCR PO ×2 (09:06→20:32)
[2020-07-21] MEDS: CHOLECALCIFEROL 1,000 UNITS TABLET 1000 UNITS PO (09:06)
[2020-07-21] MEDS: METOPROLOL TARTRATE 25 MG TABLET PO ×2 (09:07→20:32)
[2020-07-21] MEDS: polyethylene glycoL 3350 17 GM POWD.PACK PO (09:07)
--- NOTE | 2020-07-21 14:07 | WPDREHABHP ---
H&P: HPI History of Present Illness Date/Time: 07/21/20 14:07 74 years old old lady admitted to the rehab floor with right-sided 3rd through 9th ribs fracture secondary to fall in addition to the history of atrial fibrillation, hypertension, continues to receive the physical therapyand occupational therapy on the rehab, floor this morning she was complaining of increasing difficulties in breathing, her UA was slightly abnormal which is being cultured. Chief complaint: Rib fx's 3-9, A-FIB Narrative: Iesha Carbone is a 74 year old female Review of Systems Review of Systems All systems reviewed & are unremarkable except as noted in HPI and below PMFSH Past Medical History Medical History Ascending aorta dilation Mild to moderate dilation of the ascending aorta (4.3 cm) noted on echocardiogram on 07/09/2020. Atrial fibrillation (~06/2020) Workup at outside facility was essentially unremarkable with a normal TSH and echocardiogram showing normal left ventricular size, mild LVH, normal LVEF of 70%, mild aortic stenosis, and mild pulmonary hypertension (42 mmHg). Colon polyps Hemorrhagic stroke (~2003) Basal ganglia hemorrhagic stroke attributed to severely elevated blood pressure. No significant residual deficits however on occasion she will have very mild paresthesias of her left upper extremity. Hypertension Traumatic fracture of ribs of right side with pneumothorax (~07/01/20) Traumatic right rib fractures, 3 through 9, with pneumohemothorax. Initially she was to have a vats procedure but that was canceled due to difficulties with intubation. Surgical History Surgical History History of breast augmentation With subsequent removal of implants. Family History Family History Mother Colon cancer Father Aortic aneurysm Sibling Guillain-[place] syndrome Sibling Pancreatic cancer Social History Social History (Updated 07/17/20 @ 16:44 by Yaritza Sanchez PA-C) Social History: Surrogate decision maker: Leon Carbone, spouse. Code status: Full code. Smoking status: Never smoker Alcohol intake: current Drinks per week: 1 Substance use: never Substance use type: does not use Additional living arrangements comments: Resides with her in [place]. She has no biological children. 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 Spiritual care concerns: No Meds Home Medications and Allergies Home Medications Medication Instructions Recorded Confirmed Type acetaminophen 1,000 mg PO TID 07/14/20 07/17/20 History cholecalciferol (vitamin D3) 25 mcg PO DAILY 07/14/20 07/17/20 History guaifenesin [Mucinex] 600 mg PO Q12H 07/14/20 07/17/20 History lidocaine [Lidoderm] 1 patch TOPICAL DAILY 07/14/20 07/17/20 History metaxalone 800 mg PO TID PRN 07/14/20 07/17/20 History oxycodone 5 mg PO Q4H PRN 07/14/20 07/17/20 History polyethylene glycol 3350 [Miralax] 17 g PO DAILY 07/14/20 07/17/20 History albuterol sulfate 2.5 mg INHALATION Q6H 07/17/20 07/17/20 History ipratropium bromide 0.5 mg INHALATION Q6H 07/17/20 07/17/20 History metoprolol tartrate 25 mg PO Q12H 07/17/20 07/17/20 History ondansetron HCl 4 mg PO Q6H PRN 07/17/20 07/17/20 History sodium chloride 2 spray INTRANASAL Q4H PRN 07/17/20 07/17/20 History digoxin 125 mcg PO QAM #60 tablet 07/19/20 Rx diltiazem HCl 90 mg PO Q6HR #120 tablet 07/19/20 Rx fluticasone propionate 1 spray INTRANASAL Q12HR #9.9 ml 07/19/20 Rx loratadine 10 mg PO QAM #30 tablet 07/19/20 Rx Allergies Allergy/AdvReac Type Severity Reaction Status Date / Time cephalexin [From Keflex] Allergy Rash Verified 07/17/20 11:19 lisinopril [From Zestril] Allergy Rash Verified 07/17/20 11:18 Fish Containing Products AdvReac Severe Swelling Verified 07/17/20 11:20 Vital Signs Vital Sig
[2020-07-22] VITALS (12 sets, daily range): BP systolic 118–137; BP diastolic 63–73; PULSE 64–90; RESP 16–20; TEMP 36.3–36.6; O2SAT 94–96
[2020-07-22] MEDS: ALBUTEROL SULFATE NEB 2.5 MG/0.5 ML INH INHALATION ×2 (01:30→09:47)
[2020-07-22] MEDS: IPRATROPIUM BR 0.02% INH SOLN 0.5 MG/2.5 ML VIAL INHALATION ×2 (01:31→09:47)
[2020-07-22] MEDS: dilTIAZem HCL TAB 30 MG, dilTIAZem HCL TAB 60 MG 90 MG PO ×4 (06:00→23:52)
[2020-07-22] MEDS: ACETAMINOPHEN 500 MG TABLET 1000 MG PO ×3 (06:01→21:47)
[2020-07-22] MEDS: CHOLECALCIFEROL 1,000 UNITS TABLET 1000 UNITS PO (08:40)
[2020-07-22] MEDS: METAXALONE 800 MG TABLET PO (08:40)
[2020-07-22] MEDS: METOPROLOL TARTRATE 25 MG TABLET PO ×2 (08:40→20:45)
[2020-07-22] MEDS: DIGOXIN TAB 125 MCG TABLET PO (08:41)
[2020-07-22] MEDS: APIXABAN 5 MG TABLET PO ×2 (08:41→20:44)
[2020-07-22] MEDS: FLUTICASONE PROPIONATE 0.05% NA SPR 16 GM BTL (*BKC) 1 SPRAY NASAL ×2 (08:41→20:45)
[2020-07-22] MEDS: LIDOCAINE 5% PATCH 1 PATCH TRANSDERM (08:42)
[2020-07-22] MEDS: guaiFENesin 12 HR 600 MG TABCR PO ×2 (08:42→20:45)
[2020-07-22] MEDS: LORATADINE 10 MG TABLET PO (08:42)
--- NOTE | 2020-07-22 12:45 | PCDIET ---
Nutrition Follow-Up Complete: No nutrition diagnosis at this time. Nutrition Goal: Pt will continue to progress healing and consume adequate daily calories and protein from regular diet. Goal in progress. Average intake since 07/16/20 has been 53% of recorded meals. Patient getting tired of Ensure Enlive and requested to reduce amount. Recommend liberalizing diet to regular with Ensure Enlive prn. Last recorded weight is 110.3 kg. Recommend obtaining new weight. Bowel Motility: Last BM on 07/21/20 per nursing flowsheet. Labs Reviewed: Hgb (9.2), Hct (28.6), Glu (109), Cr (0.6) Meds Noted: Albuterol, Atrovent, Lopressor, Vitamin D Additional Notes: Scabbed area to chest from tube site. No pressure ulcers documented. Will continue to monitor with same goal. Nutrition Monitoring and Evaluation: Follow up in 7 days.
[2020-07-23 05:06] VITALS: BP 149/83; PULSE 85; RESP 20; TEMP 36.6; O2SAT 95
[2020-07-23] MEDS: ACETAMINOPHEN 500 MG TABLET 1000 MG PO ×3 (05:45→20:22)
[2020-07-23] MEDS: dilTIAZem HCL TAB 30 MG, dilTIAZem HCL TAB 60 MG 90 MG PO ×4 (05:45→23:34)
[2020-07-23] MEDS: APIXABAN 5 MG TABLET PO ×2 (08:26→20:20)
[2020-07-23 08:27] VITALS: PULSE 72
[2020-07-23] MEDS: CHOLECALCIFEROL 1,000 UNITS TABLET 1000 UNITS PO (08:27)
[2020-07-23] MEDS: DIGOXIN TAB 125 MCG TABLET PO (08:27)
[2020-07-23] MEDS: guaiFENesin 12 HR 600 MG TABCR PO ×2 (08:29→20:20)
[2020-07-23] MEDS: LIDOCAINE 5% PATCH 1 PATCH TRANSDERM (08:29)
[2020-07-23] MEDS: FLUTICASONE PROPIONATE 0.05% NA SPR 16 GM BTL (*BKC) 1 SPRAY NASAL ×2 (08:29→20:21)
[2020-07-23 08:31] VITALS: PULSE 82
[2020-07-23] MEDS: polyethylene glycoL 3350 17 GM POWD.PACK PO (08:31)
[2020-07-23] MEDS: LORATADINE 10 MG TABLET PO (08:31)
[2020-07-23] MEDS: METOPROLOL TARTRATE 25 MG TABLET PO ×2 (08:31→20:20)
[2020-07-23] MEDS: METAXALONE 800 MG TABLET PO (08:33)
--- NOTE | 2020-07-23 11:46 | PC.NURSE ---
Made Dr. Husain aware of culture/sensativity results. OK to continue bactrim as ordered
--- NOTE | 2020-07-23 12:38 | PC.NURSE ---
LEFT MESSAGE WITH DR KAY REGARDING BLOOD THINNER AND ASKING IF THEY WERE GOING TO SEE PATIENT AGAIN WHILE HOSPITALIZED, ALSO FOLLOW UP APPOINTMENT WAS MADE WITH DR. KAY FOR Jul
--- NOTE | 2020-07-23 12:44 | PC.NURSE ---
LEFT MESSAGE WITH ENT, DR. HERNANDEZ AWAITING RETURN CALL
[2020-07-23 14:00] VITALS: BP 138/64; PULSE 99; RESP 20; TEMP 36.3; O2SAT 98
--- NOTE | 2020-07-23 17:40 | WPDNEURORHBP ---
Subjective Date/time seen: 07/23/20 17:40 74 years old lady admitted to the rehab floor with rib fractures in addition to the ongoing history of atrial fibrillation, hypertension she is involved with physical therapy, no specific complaints on today's visit Review of Systems Review of Systems: All systems reviewed & are unremarkable except as noted in HPI and below Functional Status Ambulation Ability Ability to Ambulate 10 Feet: Standby Assistance Ability to Ambulate 50 Feet With 2 Turns: Standby Assistance Ability to Ambulate 150 Feet: Standby Assistance Ambulation Assistive Devices: Walker, Wheeled Transfers Ability Ability to Transfer In/Out of Chair: Standby Assistance Exam Narrative: Exam Narrative: on examination she is awake alert cooperative complaining of no pain ,speech not dysphasic not dysarthric, not dysphonic, ear nose throat examination normal ,mucous membranes are moist ,heart regular with no murmur, lungs clear with no rhonchi or crepitation,abdomen is soft normal bowel sounds and neuro examination essentially unchanged Objective Data Vital Signs Vital Signs: Vital Signs - 24 hr 07/22/20 20:45 07/22/20 20:59 07/22/20 23:50 Temperature 36.6 C Pulse Rate 90 90 76 Respiratory Rate 20 Blood Pressure 137/66 118/70 Pulse Oximetry 95 96 07/23/20 05:06 07/23/20 08:27 07/23/20 08:31 Temperature 36.6 C Pulse Rate 85 72 82 Respiratory Rate 20 Blood Pressure 149/83 H Pulse Oximetry 95 07/23/20 14:00 Temperature 36.3 C L Pulse Rate 99 Respiratory Rate 20 Blood Pressure 138/64 Pulse Oximetry 98 Intake/Output Intake/Output: Intake & Output 07/20/20 07/21/20 07/22/20 07/23/20 23:59 23:59 23:59 23:59 Intake Total 720 600 720 480 Balance 720 600 720 480 Meds/Results Medications: Active Medications Generic Name Dose Route Start Last Admin Trade Name Freq PRN Reason Stop Dose Admin Acetaminophen 1,000 mg 07/19/20 22:00 07/23/20 14:01 Acetaminophen 500 Mg Tablet PO 1,000 mg Q8HR VIRA Administration Albuterol 2.5 mg 07/22/20 14:37 Albuterol Sulfate Neb 2.5 Mg/0.5 Ml Inh INHALATION Q6HRT PRN Shortness Of Breath Or Wheezing Apixaban 5 mg 10/23/20 21:00 07/23/20 08:26 Apixaban 5 Mg Tablet PO 5 mg Q12HR VIRA Administration Digoxin 125 mcg 07/20/20 09:00 07/23/20 08:27 Digoxin Tab 125 Mcg Tablet PO 125 mcg QAM VIRA Administration Diltiazem HCl 30 mg/ Diltiazem 90 mg 07/19/20 18:00 07/23/20 17:20 HCl 60 mg PO 90 mg Q6HR VIRA Administration Fluticasone Propionate 1 spray 07/19/20 21:00 07/23/20 08:29 Fluticasone Propionate 0.05% Na Spr 16 Gm Btl (*Bkc) NASAL 1 spray Q12HR VIRA Administration Guaifenesin 600 mg 07/19/20 21:00 07/23/20 08:29 Guaifenesin 12 Hr 600 Mg Tabcr PO 600 mg Q12HR VIRA Administration Ipratropium [place] 0.5 mg 07/22/20 14:37 Ipratropium Br 0.02% Inh Soln 0.5 Mg/2.5 Ml Vial INHALATION Q6HRT PRN Shortness Of Breath Or Wheezing Lidocaine 1 patch 07/20/20 09:00 07/23/20 08:29 Lidocaine 5% Patch TRANSDERM 1 patch DAILY VIRA Administration Loratadine 10 mg 07/20/20 09:00 07/23/20 08:31 Loratadine 10 Mg Tablet PO 10 mg QAM VIRA Administration Metaxalone 800 mg 07/19/20 16:59 07/23/20 08:33 Metaxalone 800 Mg Tablet PO 800 mg TID PRN Administration Muscle Spasm Metoprolol Tartrate 25 mg 07/19/20 21:00 07/23/20 08:31 Metoprolol Tartrate 25 Mg Tablet PO 25 mg Q12HR VIRA Administration Ondansetron HCl 4 mg 07/19/20 16:59 Ondansetron Hcl Odt 4 Mg Tablet PO Q6H PRN Nausea And Vomiting Oxycodone HCl 5 mg 07/19/20 16:59 Oxycodone Hcl (*Crx) 5 Mg Tab Ir PO Q4H PRN Pain Rated 7-10 Polyethylene Glycol 17 gm 07/20/20 09:00 07/23/20 08:31 Polyethylene Glycol 3350 17 Gm Powd.Pack PO 17 gm QAM VIRA Administration Sodium Chloride 1 spray 07/19/20 17:11 Saline 0.65% Alli Soln 44 Ml Btl
[2020-07-23 20:20] VITALS: PULSE 88
[2020-07-23 20:30] VITALS: BP 151/77; PULSE 96; RESP 18; TEMP 36.6; O2SAT 97
[2020-07-23 20:38] LABS: Digoxin 0.5 ng/mL (0.8-2.0)
[2020-07-24 05:18] VITALS: BP 127/70; PULSE 87; RESP 20; TEMP 36.1; O2SAT 96
[2020-07-24] MEDS: dilTIAZem HCL TAB 30 MG, dilTIAZem HCL TAB 60 MG 90 MG PO ×3 (05:53→18:07)
[2020-07-24] MEDS: ACETAMINOPHEN 500 MG TABLET 1000 MG PO ×2 (05:53→15:16)
[2020-07-24] MEDS: FLUTICASONE PROPIONATE 0.05% NA SPR 16 GM BTL (*BKC) 1 SPRAY NASAL ×2 (09:24→20:40)
[2020-07-24 09:25] VITALS: PULSE 87
[2020-07-24] MEDS: DIGOXIN TAB 125 MCG TABLET PO (09:25)
[2020-07-24] MEDS: APIXABAN 5 MG TABLET PO ×2 (09:25→21:19)
[2020-07-24] MEDS: CHOLECALCIFEROL 1,000 UNITS TABLET 1000 UNITS PO (09:25)
[2020-07-24 09:26] VITALS: PULSE 87
[2020-07-24] MEDS: METOPROLOL TARTRATE 25 MG TABLET PO ×2 (09:26→21:20)
[2020-07-24] MEDS: LORATADINE 10 MG TABLET PO (09:26)
[2020-07-24] MEDS: polyethylene glycoL 3350 17 GM POWD.PACK PO (09:26)
[2020-07-24] MEDS: guaiFENesin 12 HR 600 MG TABCR PO ×2 (09:26→21:19)
[2020-07-24] MEDS: LIDOCAINE 5% PATCH 1 PATCH TRANSDERM (09:26)
[2020-07-24 14:00] VITALS: BP 145/83; PULSE 82; RESP 20; TEMP 36.5; O2SAT 97
--- NOTE | 2020-07-24 14:02 | PCDIET ---
Dig level done this morning, 0.[address] Husain is aware and said no changes need to be made.
--- NOTE | 2020-07-24 17:49 | WPDNEURORHBP ---
Subjective Date/time seen: 07/24/20 17:49 74 years old lady with multiple rib fractures in addition to history of atrial fibrillation and hypertension . involved in the physical therapy and occupational therapy, able to ambulate up to 150ft with standby assistance using a wheeled walker and able to transfer in and out of chair with standby assistance Functional Status Ambulation Ability Ability to Ambulate 10 Feet: Standby Assistance Ability to Ambulate 50 Feet With 2 Turns: Standby Assistance Ability to Ambulate 150 Feet: Standby Assistance Ambulation Assistive Devices: Walker, Wheeled Transfers Ability Ability to Transfer In/Out of Chair: Independent Exam Narrative: Exam Narrative: on examination awake alert cooperative ear nose throat exam normal neck supple heart regular lungs clear abdomen is soft normal bowel sounds neuro essentially unchanged Objective Data Vital Signs Vital Signs: Vital Signs - 24 hr 07/23/20 20:20 07/23/20 20:30 07/24/20 05:18 Temperature 36.6 C 36.1 C L Pulse Rate 88 96 87 Respiratory Rate 18 20 Blood Pressure 151/77 H 127/70 Pulse Oximetry 97 96 07/24/20 09:25 07/24/20 09:26 07/24/20 14:00 Temperature 36.5 C Pulse Rate 87 87 82 Respiratory Rate 20 Blood Pressure 145/83 H Pulse Oximetry 97 Intake/Output Intake/Output: Intake & Output 07/21/20 07/22/20 07/23/20 07/24/20 23:59 23:59 23:59 23:59 Intake Total 600 720 720 480 Balance 600 720 720 480 Meds/Results Medications: Active Medications Generic Name Dose Route Start Last Admin Trade Name Simoneq PRN Reason Stop Dose Admin Acetaminophen 1,000 mg 07/19/20 22:00 07/24/20 15:16 Acetaminophen 500 Mg Tablet PO 1,000 mg Q8HR VIRA Administration Albuterol 2.5 mg 07/22/20 14:37 Albuterol Sulfate Neb 2.5 Mg/0.5 Ml Inh INHALATION Q6HRT PRN Shortness Of Breath Or Wheezing Apixaban 5 mg 07/19/20 21:00 07/24/20 09:25 Apixaban 5 Mg Tablet PO 5 mg Q12HR VIRA Administration Digoxin 125 mcg 07/20/20 09:00 07/24/20 09:25 Digoxin Tab 125 Mcg Tablet PO 125 mcg QAM VIRA Administration Diltiazem HCl 30 mg/ Diltiazem 90 mg 07/19/20 18:00 07/24/20 12:19 HCl 60 mg PO 90 mg Q6HR VIRA Administration Fluticasone Propionate 1 spray 07/19/20 21:00 07/24/20 09:24 Fluticasone Propionate 0.05% Na Spr 16 Gm Btl (*Bkc) NASAL 1 spray Q12HR VIRA Administration Guaifenesin 600 mg 07/19/20 21:00 07/24/20 09:26 Guaifenesin 12 Hr 600 Mg Tabcr PO 600 mg Q12HR VIRA Administration Ipratropium [place] 0.5 mg 07/22/20 14:37 Ipratropium Br 0.02% Inh Soln 0.5 Mg/2.5 Ml Vial INHALATION Q6HRT PRN Shortness Of Breath Or Wheezing Lidocaine 1 patch 07/20/20 09:00 07/24/20 09:26 Lidocaine 5% Patch TRANSDERM 1 patch DAILY VIRA Administration Loratadine 10 mg 07/20/20 09:00 07/24/20 09:26 Loratadine 10 Mg Tablet PO 10 mg QAM VIRA Administration Metaxalone 800 mg 07/19/20 16:59 07/23/20 08:33 Metaxalone 800 Mg Tablet PO 800 mg TID PRN Administration Muscle Spasm Metoprolol Tartrate 25 mg 07/19/20 21:00 07/24/20 09:26 Metoprolol Tartrate 25 Mg Tablet PO 25 mg Q12HR VIRA Administration Ondansetron HCl 4 mg 07/19/20 16:59 Ondansetron Hcl Odt 4 Mg Tablet PO Q6H PRN Nausea And Vomiting Oxycodone HCl 5 mg 07/19/20 16:59 Oxycodone Hcl (*Crx) 5 Mg Tab Ir PO Q4H PRN Pain Rated 7-10 Polyethylene Glycol 17 gm 07/20/20 09:00 07/24/20 09:26 Polyethylene Glycol 3350 17 Gm Powd.Pack PO 17 gm QAM VIRA Administration Sodium Chloride 1 spray 07/19/20 17:11 Saline 0.65% Alli Soln 44 Ml Btl NASAL Q4HR PRN Congestion Trimethoprim/Sulfamethoxazole 1 tab 07/22/20 13:00 07/24/20 09:26 Trimethoprim/Sulfamethoxazole 160-800 Mg Ds Tablet PO 07/26/20 21:01 1 tab Q12HR VIRA Administration Vitamin D 1,000 units 07/20/20 09:00 07/24/20 09:25 Cholecalciferol 1,000 Units
[2020-07-24] MEDS: ONDANSETRON HCL ODT 4 MG TABLET PO (20:48)
[2020-07-24] MEDS: oxyCODONE HCL (*CRX) 5 MG TAB IR PO (21:16)
[2020-07-24 21:20] VITALS: PULSE 95
[2020-07-24 22:00] VITALS: BP 113/77; PULSE 95; RESP 20; TEMP 37; O2SAT 93
[2020-07-25] MEDS: dilTIAZem HCL TAB 30 MG, dilTIAZem HCL TAB 60 MG 90 MG PO ×5 (00:02→23:42)
[2020-07-25] MEDS: ACETAMINOPHEN ELIXIR 325 MG/10.15 ML UDC 1000 MG BY MOUTH ×2 (05:54→14:57)
[2020-07-25 06:00] VITALS: BP 129/64; PULSE 85; RESP 16; TEMP 36.4; O2SAT 91
[2020-07-25 09:25] VITALS: PULSE 85
[2020-07-25] MEDS: APIXABAN 5 MG TABLET PO ×2 (09:25→21:03)
[2020-07-25] MEDS: CHOLECALCIFEROL 1,000 UNITS TABLET 1000 UNITS PO (09:25)
[2020-07-25] MEDS: DIGOXIN TAB 125 MCG TABLET PO (09:25)
[2020-07-25] MEDS: LIDOCAINE 5% PATCH 1 PATCH TRANSDERM (09:26)
[2020-07-25] MEDS: FLUTICASONE PROPIONATE 0.05% NA SPR 16 GM BTL (*BKC) 1 SPRAY NASAL ×2 (09:26→21:05)
[2020-07-25] MEDS: guaiFENesin 12 HR 600 MG TABCR PO ×2 (09:26→21:03)
[2020-07-25] MEDS: LORATADINE 10 MG TABLET PO (09:27)
[2020-07-25 09:28] VITALS: PULSE 85
[2020-07-25] MEDS: METOPROLOL TARTRATE 25 MG TABLET PO ×2 (09:28→21:03)
[2020-07-25] MEDS: polyethylene glycoL 3350 17 GM POWD.PACK PO (09:28)
[2020-07-25 14:00] VITALS: BP 128/79; PULSE 96; RESP 20; TEMP 36.6; O2SAT 95
--- NOTE | 2020-07-25 17:04 | PC.NURSE ---
Spoke with ENT office this morning of Dr. Munson and they do not come to [place] so new consult with Dr. Jara who will see patient on Thursday 07/26 after surgery per his office.
[2020-07-25 21:03] VITALS: PULSE 95
[2020-07-25 21:04] VITALS: BP 138/70; PULSE 95; RESP 18; TEMP 36.4; O2SAT 100
[2020-07-25] MEDS: oxyCODONE HCL (*CRX) 5 MG TAB IR PO (21:09)
[2020-07-26] VITALS (10 sets, daily range): BP systolic 121–150; BP diastolic 73–81; PULSE 82–126; RESP 20; TEMP 36.2–36.7; O2SAT 92–98
[2020-07-26] MEDS: dilTIAZem HCL TAB 30 MG, dilTIAZem HCL TAB 60 MG 90 MG PO ×3 (05:31→18:04)
[2020-07-26] MEDS: ACETAMINOPHEN ELIXIR 325 MG/10.15 ML UDC 1000 MG BY MOUTH ×3 (05:33→20:20)
[2020-07-26] MEDS: CHOLECALCIFEROL 1,000 UNITS TABLET 1000 UNITS PO (09:12)
[2020-07-26] MEDS: APIXABAN 5 MG TABLET PO ×2 (09:12→20:17)
[2020-07-26] MEDS: DIGOXIN TAB 125 MCG TABLET PO (09:12)
[2020-07-26] MEDS: LIDOCAINE 5% PATCH 1 PATCH TRANSDERM (09:13)
[2020-07-26] MEDS: guaiFENesin 12 HR 600 MG TABCR PO ×2 (09:13→20:17)
[2020-07-26] MEDS: LORATADINE 10 MG TABLET PO (09:14)
[2020-07-26] MEDS: METOPROLOL TARTRATE 25 MG TABLET PO ×2 (09:15→20:18)
[2020-07-26] MEDS: polyethylene glycoL 3350 17 GM POWD.PACK PO (09:15)
[2020-07-26] MEDS: FLUTICASONE PROPIONATE 0.05% NA SPR 16 GM BTL (*BKC) 1 SPRAY NASAL ×2 (09:18→20:17)
--- NOTE | 2020-07-26 09:59 | PCRCNOTE ---
HOME O2 EVAL COMPLETE, NO REQUIREMENTS.
--- NOTE | 2020-07-26 13:22 | WPDNEURORHBP ---
Subjective Date/time seen: 74 years old lady admitted to the rehab floor with multiple rib fractures on the right side involving in addition to the history of atrial fibrillation, hypertension, and at times difficulties in breathing because of the underlying fracture and pain additionally she has mild to moderate dilatation of the ascending aorta and history of basal gangliar hemorrhage in the past she is involved in the physical therapy at present able to ambulate up to 150ft using a wheeled walker able to transfer in and out of chair independently, has a hemoglobin of only 9 with platelet count of 4 4 3 an MCV of 101.8 electrolytes normal digital level 0.5 UTI treated with Bactrim DS for 5 days will check a UA again she is definitely improving and making progress Review of Systems Review of Systems: All systems reviewed & are unremarkable except as noted in HPI and below Functional Status Ambulation Ability Ability to Ambulate 10 Feet: Independent Ability to Ambulate 50 Feet With 2 Turns: Independent Ability to Ambulate 150 Feet: Independent Ambulation Assistive Devices: Walker, Wheeled Transfers Ability Ability to Transfer In/Out of Chair: Independent Exam Narrative: Exam Narrative: exam today reveals her to be awake alert cooperative ear nose throat examination normal neck is supple heart regular lungs clear abdomen is soft neuro unchanged Objective Data Vital Signs Vital Signs: Vital Signs - 24 hr 07/25/20 14:00 07/25/20 21:03 07/25/20 21:04 Temperature 36.6 C 36.4 C Pulse Rate 96 95 95 Respiratory Rate 20 18 Blood Pressure 128/79 138/70 Pulse Oximetry 95 100 07/26/20 05:13 07/26/20 09:12 07/26/20 09:15 Temperature 36.2 C L Pulse Rate 86 86 86 Respiratory Rate 20 Blood Pressure 139/81 Pulse Oximetry 97 07/26/20 09:30 07/26/20 09:35 07/26/20 09:45 Temperature Pulse Rate 99 126 H 98 Respiratory Rate Blood Pressure Pulse Oximetry 94 92 93 Intake/Output Intake/Output: Intake & Output 07/23/20 07/24/20 07/25/20 07/26/20 23:59 23:59 23:59 23:59 Intake Total 801 897 8171 240 Balance 605 520 5875 240 Meds/Results Medications: Active Medications Generic Name Dose Route Start Last Admin Trade Name Freq PRN Reason Stop Dose Admin Acetaminophen 1,000 mg 07/24/20 22:00 07/26/20 05:33 Acetaminophen Elixir 325 Mg/10.15 Ml Udc BY MOUTH 1,000 mg Q8HR VIRA Administration Albuterol 2.5 mg 07/22/20 14:37 Albuterol Sulfate Neb 2.5 Mg/0.5 Ml Inh INHALATION Q6HRT PRN Shortness Of Breath Or Wheezing Apixaban 5 mg 07/19/20 21:00 07/26/20 09:12 Apixaban 5 Mg Tablet PO 5 mg Q12HR VIRA Administration Digoxin 125 mcg 07/20/20 09:00 07/26/20 09:12 Digoxin Tab 125 Mcg Tablet PO 125 mcg QAM VIRA Administration Diltiazem HCl 30 mg/ Diltiazem 90 mg 07/19/20 18:00 07/26/20 12:12 HCl 60 mg PO 90 mg Q6HR VIRA Administration Fluticasone Propionate 1 spray 07/19/20 21:00 07/26/20 09:18 Fluticasone Propionate 0.05% Na Spr 16 Gm Btl (*Bkc) NASAL 1 spray Q12HR VIRA Administration Guaifenesin 600 mg 07/19/20 21:00 07/26/20 09:13 Guaifenesin 12 Hr 600 Mg Tabcr PO 600 mg Q12HR VIRA Administration Ipratropium [place] 0.5 mg 07/22/20 14:37 Ipratropium Br 0.02% Inh Soln 0.5 Mg/2.5 Ml Vial INHALATION Q6HRT PRN Shortness Of Breath Or Wheezing Lidocaine 1 patch 07/20/20 09:00 07/26/20 09:13 Lidocaine 5% Patch TRANSDERM 1 patch DAILY VRIA Administration Loratadine 10 mg 07/20/20 09:00 07/26/20 09:14 Loratadine 10 Mg Tablet PO 10 mg QAM VIRA Administration Metaxalone 800 mg 07/19/20 16:59 07/23/20 08:33 Metaxalone 800 Mg Tablet PO 800 mg TID PRN Administration Muscle Spasm Metoprolol Tartrate 25 mg 07/19/20 21:00 07/26/20 09:15 Metoprolol Tartrate 25 Mg Tablet PO 25 mg Q12HR VIRA Administration Ondansetron HCl 4 mg 07/19/20 16:59 07/24/20 20:48 Ondansetron Hcl
--- NOTE | 2020-07-26 14:01 | WPDCN ---
Assessment and Plan Assessment and plan (1) Dysphagia: Code(s): R13.10 - Dysphagia, unspecified Status: Acute Assessment and Plan: I was unable to locate any endoscopic explanation for the patient's dysphagia/odynophagia. Please have her follow up in one month for any persistent problems. Recommend aggressive speech therapy for swallow dysfunction. (2) Odynophagia: Code(s): R13.10 - Dysphagia, unspecified Status: Acute HPI Data of Consult Date/Time: 07/26/20 14:01 Requesting Physician: Charlie Coronel MD Primary Care Provider: Sandra Nguyễn, Consult Narrative Narrative: Iesha Carbone is a 74 year old female who was recently intubated and now reports resolving right sided odynophagia and now dysphagia especially to her pills. Mildly improving with time. ENT consulted for further evaluation. Review of Systems Constitutional: Constitutional: Denies fatigue, Denies fever(s) and Denies lethargy Eyes: Eyes: Denies blurry vision and Denies change in vision ENT: Reports as per HPI Cardiovascular: Cardiovascular: Denies chest pain Respiratory: Respiratory: Denies cough Endocrine: Endocrine: Denies fatigue Hematologic/Lymphatic: Hematologic/Lymphatic: Denies easy bleeding, Denies easy bruising and Denies lymphadenopathy Allergic/Immunologic: Allergic/Immunologic: Denies seasonal rhinorrhea [facility] Past Medical History Medical History Ascending aorta dilation Mild to moderate dilation of the ascending aorta (4.3 cm) noted on echocardiogram on 07/09/2020. Atrial fibrillation (~06/2020) Workup at outside facility was essentially unremarkable with a normal TSH and echocardiogram showing normal left ventricular size, mild LVH, normal LVEF of 70%, mild aortic stenosis, and mild pulmonary hypertension (42 mmHg). Colon polyps Hemorrhagic stroke (~2003) Basal ganglia hemorrhagic stroke attributed to severely elevated blood pressure. No significant residual deficits however on occasion she will have very mild paresthesias of her left upper extremity. Hypertension Traumatic fracture of ribs of right side with pneumothorax (~07/01/20) Traumatic right rib fractures, 3 through 9, with pneumohemothorax. Initially she was to have a vats procedure but that was canceled due to difficulties with intubation. Surgical History Surgical History History of breast augmentation With subsequent removal of implants. Family History Family History Mother Colon cancer Father Aortic aneurysm Sibling Guillain-[place] syndrome Sibling Pancreatic cancer Social History Social History (Updated 07/17/20 @ 16:44 by Yaritza Sanchez PA-C) Social History: Surrogate decision maker: Leon Carbone, spouse. Code status: Full code. Smoking status: Never smoker Alcohol intake: current Drinks per week: 1 Substance use: never Substance use type: does not use Additional living arrangements comments: Resides with her in Home. She has no biological children. 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 Spiritual care concerns: No Meds Home Medications and Allergies Home Medications Medication Instructions Recorded Confirmed Type acetaminophen 1,000 mg PO TID 07/14/20 07/17/20 History cholecalciferol (vitamin D3) 25 mcg PO DAILY 07/14/20 07/17/20 History guaifenesin [Mucinex] 600 mg PO Q12H 07/14/20 07/17/20 History lidocaine [Lidoderm] 1 patch TOPICAL DAILY 07/14/20 07/17/20 History metaxalone 800 mg PO TID PRN 07/14/20 07/17/20 History polyethylene glycol 3350 [Miralax] 17 g PO DAILY 07/14/20 07/17/20 History albuterol sulfate 2.5 mg INHALATION Q6H 07/17/20 07/17/20 History ipratropium bromide 0.5 mg INHALATION Q6H 07/17/20 07/17/20 History metoprolol tartrate 25 mg PO Q12H 07/17/20
[2020-07-27] MEDS: dilTIAZem HCL TAB 30 MG, dilTIAZem HCL TAB 60 MG 90 MG PO ×2 (00:17→12:53)
--- NOTE | 2020-07-27 01:43 | ADMGEN ---
This patient, Iesha Carbone, was admitted to [facility] Room 225-01 . Patient/family oriented to hospital policies and general routines including ID bracelet, bed and alarms, visiting hours, pain management, procedures, bathroom and other care routines, personal items, smoking policy, room service/diet, and visiting hours. Information on how to activate the Rapid Response Team has been discussed. Patient/Family are encouraged to report perceived risks to care and to ask questions if they do not understand what they are told or what they should do.
[2020-07-27] MEDS: ACETAMINOPHEN ELIXIR 325 MG/10.15 ML UDC 1000 MG BY MOUTH (05:48)
[2020-07-27 06:00] VITALS: BP 143/70; PULSE 93; RESP 20; TEMP 36.4; O2SAT 95
[2020-07-27] MEDS: APIXABAN 5 MG TABLET PO (09:10)
[2020-07-27] MEDS: CHOLECALCIFEROL 1,000 UNITS TABLET 1000 UNITS PO (09:11)
[2020-07-27] MEDS: LIDOCAINE 5% PATCH 1 PATCH TRANSDERM (09:11)
[2020-07-27] MEDS: guaiFENesin 12 HR 600 MG TABCR PO (09:11)
[2020-07-27] MEDS: LORATADINE 10 MG TABLET PO (09:12)
[2020-07-27 09:13] VITALS: PULSE 93
[2020-07-27] MEDS: FLUTICASONE PROPIONATE 0.05% NA SPR 16 GM BTL (*BKC) 1 SPRAY NASAL (09:13)
[2020-07-27] MEDS: METOPROLOL TARTRATE 25 MG TABLET PO (09:13)
[2020-07-27 09:15] VITALS: PULSE 93
[2020-07-27] MEDS: DIGOXIN TAB 125 MCG TABLET PO (09:15)
--- NOTE | 2020-08-01 15:45 | DS_ITS ---
This report was moved to the correct visit, [id number] on 08/07/2020. Original report was signed by Darwin Husain MD on 08/02/20 [id number]. DS: Admitting Diagnosis Admitting Diagnosis Admitting Diagnosis: 74 years old lady admitted to the acute rehab of [facility] with right-sided multiple rib fractures secondary to fall in addition to the history of underlying atrial fibrillation, hypertension, he was involved in the physical therapy and occupational therapy on the rehab floor and did fairly well with no specific complaints or problem during the entire hospitalization at the time of admission her measures were as follows Eating independent Oral Care substantial Toileting Hygiene partial assistance Shower/Bathing substantial Upper Body Dressing substantial Lower Body Dressing substantial Donning/[place] Footwear substantial Rolling Left and Right supervision Sit to Lying supervision Lying to Sitting partial assistance Sit to Stand partial assistance chair transfer partial assistance Toilet Transfers partial or assistant Car Transfers super Walking 10' substantial assistance Walking 50' with Two Turns substantial assistance Walking 150' unable to do so walking 110ft uneven surfaces required substantial or assistant Curb or Step supervising 4 Steps supervision 12 Steps patient was unable to do so Picking Up Object substantial [Wheelchair Mobility 50'] not applicable [Wheelchair Mobility 150'] GOALS: Eating [INDEPENDENT] Oral Care [INDEPENDENT] Toileting Hygiene [INDEPENDENT] Shower/Bathing [INDEPENDENT] Upper Body Dressing [INDEPENDENT] Lower Body Dressing [INDEPENDENT] Donning/[place] Footwear [INDEPENDENT] Rolling Left and Right [INDEPENDENT] Sit to Lying [INDEPENDENT] Lying to Sitting [INDEPENDENT] Sit to Stand [INDEPENDENT] Bed to Chair Transfers [INDEPENDENT] Toilet Transfers [INDEPENDENT] Car Transfers [INDEPENDENT] Walking 10' [INDEPENDENT] Walking 50' with Two Turns [INDEPENDENT] Walking 150' [INDEPENDENT] Curb or Step [INDEPENDENT] 4 Steps [INDEPENDENT] 12 Steps [INDEPENDENT] Picking Up Object [INDEPENDENT] [Wheelchair Mobility 50'] [INDEPENDENT] [Wheelchair Mobility 150'] [INDEPENDENT] DISCHARGE PERFORMANCE: Eating [INDEPENDENT] Oral Care [INDEPENDENT] Toileting Hygiene [INDEPENDENT] Shower/Bathing [INDEPENDENT] Upper Body Dressing [INDEPENDENT] Lower Body Dressing [INDEPENDENT] Donning/[place] Footwear [INDEPENDENT] Rolling Left and Right [INDEPENDENT] Sit to Lying [INDEPENDENT] Lying to Sitting [INDEPENDENT] Sit to Stand [INDEPENDENT] Bed to Chair Transfers [INDEPENDENT] Toilet Transfers [INDEPENDENT] Car Transfers [INDEPENDENT] Walking 10' [INDEPENDENT] Walking 50' with Two Turns [INDEPENDENT] Walking 150' [INDEPENDENT] Curb or Step supervision 4 Steps supervision 12 Steps supervision Picking Up Object [INDEPENDENT] [Wheelchair Mobility 50'] not applicable [Wheelchair Mobility 150'] The patient had [no falls]. DS: Summary Time Spent with Patient Time attestation: Total time spent providing and/or coordinating discharge services: Exam Narrative: Exam Narrative: throughout the hospitalization she remained stable at the time of discharge she was awake alert cooperative in no acute distress her neck was supple with no restriction of the range of motions heart was regular with no murmur lungs were clear with no rhonchi or crepitation abdomen was soft nontender with normal bowel sounds and neurological examination was essentially unchanged she was involved in the therapy actively she was discharged to home with outpatient therapy during the entire hospitalization she has no fall or injuries and her condition definitely improved Discharge Plan Discharge Attending physician marian
== END 2020-07-27 13:30 | disposition home or self-care (01) | DRG 561 ==
PROVIDERS: Internal Medicine Cardiovascular Disease; Admitting Provider Psychiatry & Neurology Neurology; PCP Family Medicine; Visit Provider Psychiatry & Neurology Neurology
DX: S22.41XD Multiple fractures of ribs, right side, subsequent encounter for fracture with routine healing (principal); S27.2XXD Traumatic hemopneumothorax, subsequent encounter; W19.XXXD Unspecified fall, subsequent encounter; I10 Essential (primary) hypertension; I48.91 Unspecified atrial fibrillation; Z86.73 Personal history of transient ischemic attack (TIA), and cerebral infarction without residual deficits; I77.810 Thoracic aortic ectasia; D64.9 Anemia, unspecified; J30.9 Allergic rhinitis, unspecified; R13.10 Dysphagia, unspecified
CPT/HCPCS: 36415; 71045; 80048; 80162; 81001; 83735; 85025; 87077; 87086; 87088; 87186; 93005; 94618; 94640; 97110; 97112; 97116; 97161; 97164; 97167; 97168; 97530; 97535; A9270

== ENCOUNTER 2020-07-17 14:00 | Inpatient (IN) | payer MEDICARE, BC, SELFPAY ==
[2020-07-17] VITALS (14 sets, daily range): BP systolic 126–150; BP diastolic 69–84; PULSE 96–150; RESP 18–20; TEMP 36.1–36.2; O2SAT 95–100; BMI 31.7
--- NOTE | 2020-07-17 14:20 | ADMGEN ---
This patient, Iesha Carbone, was admitted to IMU Room 212-01. Patient/family oriented to hospital policies and general routines including ID bracelet, bed and alarms, visiting hours, pain management, procedures, bathroom and other care routines, personal items, smoking policy, room service/diet, and visiting hours. Information on how to activate the Rapid Response Team has been discussed. Patient/Family are encouraged to report perceived risks to care and to ask questions if they do not understand what they are told or what they should do.
--- NOTE | 2020-07-17 15:45 | PM.IMHP ---
H&P: HPI History of Present Illness Date/Time: 07/17/20 15:45 Chief complaint: Atrial fibrillation, rapid ventricular response. Narrative: Iesha Carbone is a pleasant 74-year-old female with history of hemorrhagic stroke in 2003 attributed to severe high blood pressure, hypertension, and paroxysmal atrial fibrillation who is being directly admitted to the hospitalist service from [facility] for treatment of atrial fibrillation with rapid ventricular response. She was transferred to [facility] for rehabilitation 2 days ago after a nearly 2 weeks stay at [facility] where she was originally admitted after a fall with traumatic right rib fractures and pneumohemothorax. During her stay she developed atrial fibrillation with rapid ventricular response which was a new diagnosis for her and she was started on metoprolol, diltiazem, and apixaban. In any event, she was found to be in atrial fibrillation with rapid ventricular response on routine vitals today, and she is really asymptomatic with that. The only complaint she has at the time my evaluation is of sharp pain in the right mid back along the site of her rib fractures, which is not unusual for her to rib fractures. She also mentions suffering from seasonal allergies and notes pretty significant postnasal drip to the point where she has been nauseated with occasional dry heaves. Her appetite has been poor the past day or so because of this. She denies fever, chills, sweats, cough, chest pain, palpitations, shortness of breath, and vomiting. Review of Systems Review of Systems: Narrative: Twelve systems were reviewed with pertinent positives and negatives as per HPI. No sick contacts. No known exposure to those positive for COVID-19. She denies fever, chills, and sweats. No anosmia and dysgeusia. No myalgias or arthralgias. She denies dysphagia and concerns for aspiration. No diarrhea or constipation. Denies dysuria. Except as documented, all other systems were reviewed and are negative. [facility] Past Medical History Medical History (Updated 07/17/20 @ 16:58 by Yaritza Sanchez PA-C) Ascending aorta dilation Mild to moderate dilation of the ascending aorta (4.3 cm) noted on echocardiogram on 07/09/2020. Atrial fibrillation (~06/2020) Workup at outside facility was essentially unremarkable with a normal TSH and echocardiogram showing normal left ventricular size, mild LVH, normal LVEF of 70%, mild aortic stenosis, and mild pulmonary hypertension (42 mmHg). Colon polyps Hemorrhagic stroke (~2003) Basal ganglia hemorrhagic stroke attributed to severely elevated blood pressure. No significant residual deficits however on occasion she will have very mild paresthesias of her left upper extremity. Hypertension Traumatic fracture of ribs of right side with pneumothorax (~07/01/20) Traumatic right rib fractures, 3 through 9, with pneumohemothorax. Initially she was to have a vats procedure but that was canceled due to difficulties with intubation. Surgical History Surgical History (Updated 07/17/20 @ 16:43 by Yaritza Sanchez PA-C) History of breast augmentation With subsequent removal of implants. Family History Family History (Updated 07/17/20 @ 16:43 by Yaritza Sanchez PA-C) Mother Colon cancer Father Aortic aneurysm Sibling Guillain-[place] syndrome Sibling Pancreatic cancer Social History Social History (Updated 07/17/20 @ 16:44 by Yaritza Sanchez PA-C) Social History: Surrogate decision maker: Leon Carbone, spouse. Code status: Full code. Smoking status: Never smoker Alcohol intake: current Drinks per week: 1 Substance use: never Substance use type: does not use Additional living arrangements comments: Resides with her in [place]. She has no biological children. 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 Spiritual care concerns: No Meds Home Medications and Allergies Home Medications
[2020-07-17] MEDS: dilTIAZem HCl INJ 25 MG/5 ML VIAL 5 MG IV PUSH (16:07)
[2020-07-17] MEDS: LORATADINE 10 MG TABLET PO (17:48)
[2020-07-17] MEDS: SALINE 0.65% NAS SOLN 44 ML BTL 2 SPRAY NASAL (17:48)
[2020-07-17] MEDS: oxyCODONE HCL (*CRX) 5 MG TAB IR PO ×2 (17:53→23:35)
[2020-07-17] MEDS: ALBUTEROL SULFATE NEB 2.5 MG/0.5 ML INH INHALATION (19:37)
[2020-07-17] MEDS: IPRATROPIUM BR 0.02% INH SOLN 0.5 MG/2.5 ML VIAL INHALATION (19:37)
[2020-07-17] MEDS: METOPROLOL TARTRATE 25 MG TABLET PO (20:31)
[2020-07-17] MEDS: FLUTICASONE PROPIONATE 0.05% NA SPR 16 GM BTL (*BKC) 1 SPRAY NASAL (20:31)
[2020-07-17] MEDS: guaiFENesin 12 HR 600 MG TABCR PO (20:31)
[2020-07-18] VITALS (25 sets, daily range): BP systolic 112–132; BP diastolic 61–97; PULSE 81–153; RESP 12–20; TEMP 36–36.3; O2SAT 92–100
[2020-07-18] MEDS: ALBUTEROL SULFATE NEB 2.5 MG/0.5 ML INH INHALATION ×4 (02:44→19:13)
[2020-07-18] MEDS: IPRATROPIUM BR 0.02% INH SOLN 0.5 MG/2.5 ML VIAL INHALATION ×4 (02:44→19:13)
[2020-07-18] MEDS: LORATADINE 10 MG TABLET PO (09:48)
[2020-07-18] MEDS: CHOLECALCIFEROL 1,000 UNITS TABLET 1000 UNITS PO (09:48)
[2020-07-18] MEDS: guaiFENesin 12 HR 600 MG TABCR PO ×2 (09:49→20:18)
[2020-07-18] MEDS: FLUTICASONE PROPIONATE 0.05% NA SPR 16 GM BTL (*BKC) 1 SPRAY NASAL ×2 (09:49→20:18)
[2020-07-18] MEDS: METOPROLOL TARTRATE 25 MG TABLET PO ×2 (09:49→20:18)
[2020-07-18] MEDS: APIXABAN 5 MG TABLET PO ×2 (09:49→18:26)
[2020-07-18] MEDS: LIDOCAINE 5% PATCH 1 PATCH TOPICAL (09:50)
[2020-07-18] MEDS: ACETAMINOPHEN 500 MG TABLET 1000 MG PO ×3 (10:04→18:24)
[2020-07-18] MEDS: dilTIAZem HCL TAB 30 MG, dilTIAZem HCL TAB 60 MG 90 MG PO ×3 (13:17→23:13)
--- NOTE | 2020-07-18 13:53 | PM.CNCAR ---
Assessment and Plan Assessment and plan (1) Ascending aorta dilation: Code(s): I77.810 - Thoracic aortic ectasia Status: Acute Assessment and Plan: measuring 4.3 cm, needs clinical follow-up in the future (2) Atrial fibrillation with rapid ventricular response: Code(s): I48.91 - Unspecified atrial fibrillation Status: Acute Assessment and Plan: rate improved with the IV Cardizem was switched to oral Cardizem at 90 every 6 hours, and continue monitor inputs and outputs and continue to monitor telemetry. She had echocardiogram at [facility] showed normal left ventricular function but showed mild dilatation of the left atrium and mild dilatation of the aorta (3) Hypertension: Code(s): I10 - Essential (primary) hypertension Status: Acute Assessment and Plan: well controlled now with metoprolol and Cardizem (4) Hemopneumothorax: Code(s): J94.2 - Hemothorax Status: Acute (5) Multiple rib fractures: Code(s): S22.49XA - Multiple fractures of ribs, unspecified side, initial encounter for closed fracture Status: Acute Additional Plan Thank you for allowing me to participate in this patient's care, I will be following up with you. Please do not hesitate to call me for any other inquiry History of Present Illness History of Present Illness Consult date/time: 07/18/20 13:53 chief complaint is shortness of breath and nausea. 74-year-old lady with history of recent CVA, and history of atrial fibrillation, was in rehab getting physical therapy and treatment, noted to have atrial fibrillation with rapid ventricular response she was having significant shortness of breath and fatigue. Upon my evaluation she was having atrial fibrillation rate of 140, with that she was having significant shortness of breath. I had to transfer to telemetry, was started on Cardizem drip, and her rate improved and she feels much better today. No syncope but she has dizziness which improved since admission. No chest pain no history of coronary disease. Apparently she was at [facility] where she was admitted with a stroke, and noted to have atrial fibrillation at that time Reason For Visit: Atrial fibrillation, rapid ventricular response. Review of Systems Constitutional: Constitutional: Reports as per HPI Cardiovascular: Cardiovascular: Reports as per HPI [facility] Past Medical History Medical History Ascending aorta dilation Mild to moderate dilation of the ascending aorta (4.3 cm) noted on echocardiogram on 07/09/2020. Atrial fibrillation (~06/2020) Workup at outside facility was essentially unremarkable with a normal TSH and echocardiogram showing normal left ventricular size, mild LVH, normal LVEF of 70%, mild aortic stenosis, and mild pulmonary hypertension (42 mmHg). Colon polyps Hemorrhagic stroke (~2003) Basal ganglia hemorrhagic stroke attributed to severely elevated blood pressure. No significant residual deficits however on occasion she will have very mild paresthesias of her left upper extremity. Hypertension Traumatic fracture of ribs of right side with pneumothorax (~07/01/20) Traumatic right rib fractures, 3 through 9, with pneumohemothorax. Initially she was to have a vats procedure but that was canceled due to difficulties with intubation. Surgical History Surgical History History of breast augmentation With subsequent removal of implants. Family History Family History Mother Colon cancer Father Aortic aneurysm Sibling Guillain-[place] syndrome Sibling Pancreatic cancer Social History Social History (Updated 07/17/20 @ 16:44 by Yaritza Sanchez PA-C) Social History: Surrogate decision maker: Leon Raf, spouse. Code status: Full code. S
--- NOTE | 2020-07-18 17:07 | PM.IMPN ---
Progress Note: A&P Assessment and Plan (1) Atrial fibrillation with rapid ventricular response: Code(s): I48.91 - Unspecified atrial fibrillation Status: Acute Assessment and Plan: Pt is on a diltizem drip (2) Hypertension: Code(s): I10 - Essential (primary) hypertension Status: Chronic Assessment and Plan: On metoprolol (3) Ascending aorta dilation: Code(s): I77.810 - Thoracic aortic ectasia Status: Chronic (4) Multiple rib fractures: Code(s): S22.49XA - Multiple fractures of ribs, unspecified side, initial encounter for closed fracture Status: Chronic Assessment and Plan: Lidoderm patch (5) Anemia: Code(s): D64.9 - Anemia, unspecified Status: Acute Assessment and Plan: Continue to watch Hb (6) Allergic rhinitis: Code(s): J30.9 - Allergic rhinitis, unspecified Status: Acute Assessment and Plan: On fluticasone Subjective Date/time seen: 07/18/20 17:07 Interval history: 74-year-old lady with history of recent CVA, and history of atrial fibrillation, was in rehab getting physical therapy and treatment, noted to have atrial fibrillation with rapid ventricular response she was having significant shortness of breath and fatigue. Pt fell broke the ribs had a vats procedure. Now is in af, cannot have anticoagulation as she had a hemorrhage. Review of Systems Review of Systems: All systems reviewed & are unremarkable except as noted in HPI and below Exam Const: General: cooperative and healthy appearing; No in distress Nutritional Appearance: overweight Orientation/consciousness: oriented to person HENMT: Head: normal to inspection Resp: Effort & Inspection: no respiratory distress Auscultation: no rhonchi and no wheezes Cardio: Rate: tachycardic Rhythm: abnormal rhythm GI: Inspection: normal to inspection GI Palp: No abdominal tenderness, No Guarding due to palpation present (GI) and No Hepatomegaly present Auscultation: normal bowel sounds Neuro: General: oriented to person Objective Data Vital Signs Vital Signs: Vital Signs - 24 hr 07/17/20 17:22 07/17/20 17:47 07/17/20 18:00 Temperature 36.2 C L Pulse Rate 135 H 126 H 137 H Respiratory Rate 20 Blood Pressure 143/84 H Pulse Oximetry 95 07/17/20 19:22 07/17/20 19:39 07/17/20 19:49 Temperature 36.1 C L Pulse Rate 144 H 120 H 118 H Respiratory Rate 20 Blood Pressure 126/69 Pulse Oximetry 95 07/17/20 20:00 07/17/20 20:31 07/17/20 22:00 Temperature Pulse Rate 130 H 130 H 96 Respiratory Rate 20 Blood Pressure Pulse Oximetry 95 07/17/20 23:50 07/18/20 00:00 07/18/20 02:00 Temperature 36.1 C L Pulse Rate 122 H 84 89 Respiratory Rate 18 18 Blood Pressure 128/77 Pulse Oximetry 100 100 07/18/20 02:24 07/18/20 02:44 07/18/20 02:51 Temperature Pulse Rate 92 92 84 Respiratory Rate 20 20 Blood Pressure Pulse Oximetry 07/18/20 03:57 07/18/20 04:00 07/18/20 06:00 Temperature 36.1 C L Pulse Rate 102 H 102 H 96 Respiratory Rate 20 20 Blood Pressure 123/74 Pulse Oximetry 94 94 07/18/20 08:00 07/18/20 09:21 07/18/20 09:30 Temperature 36.0 C L Pulse Rate 101 H 133 H 142 H Respiratory Rate 18 16 16 Blood Pressure 132/76 Pulse Oximetry 92 07/18/20 09:49 07/18/20 10:00 07/18/20 12:00 Temperature 36.2 C L Pulse Rate 142 H 139 H 100 Respiratory Rate 18 Blood Pressure 113/61 Pulse Oximetry 95 07/18/20 14:00 07/18/20 14:51 07/18/20 15:00 Temperature Pulse Rate 100 86 81 Respiratory Rate 16 16 Blood Pressure Pulse Oximetry 07/18/20 16:00 Temperature 36.2 C L Pulse Rate 96 Respiratory Rate 12 Blood Pressure 122/97 H Pulse Oximetry 94 Intake/Output Intake/Output: Intake & Output 07/15/20 07/16/20 07/17/20 07/18/20 23:59 23:59 23:59 23:59 Intake Total 100 300 Output Total 100 Balance 0 300 Meds/Resul
[2020-07-18] MEDS: BENZOCAINE/MENTHOL (*BKC) 18 EA LOZENGE 1 LOZENGE PO ×2 (18:25→20:18)
[2020-07-18] MEDS: SALINE 0.65% NAS SOLN 44 ML BTL 2 SPRAY NASAL (18:25)
[2020-07-19] VITALS (17 sets, daily range): BP systolic 112–124; BP diastolic 67–82; PULSE 78–139; RESP 16–20; TEMP 35.9–36.4; O2SAT 91–95
[2020-07-19] MEDS: IPRATROPIUM BR 0.02% INH SOLN 0.5 MG/2.5 ML VIAL INHALATION ×3 (01:17→14:29)
[2020-07-19] MEDS: ALBUTEROL SULFATE NEB 2.5 MG/0.5 ML INH INHALATION ×3 (01:17→14:28)
[2020-07-19 05:02] LABS: Hematocrit 28.8 % (37.0-47.0); Mean Corpuscular HGB Conc 31.3 g/dl (32-36); Mean Corpuscular Hemoglobin 31.8 pg (26-34); Mean Corpuscular Volume 101.8 fl (80-100); Mean Platelet Volume 8.9 fl (7.4-10.4); Platelet Count Result 443 k/mm3 (150-375); Red Blood Count 2.83 M/mm3 (4.2-5.4); Red Cell Distribution Width 15.1 % (11.5-14.5); White Blood Count 5.9 K/mm3 (4.5-10.0)
[2020-07-19 05:13] LABS: Anion Gap 6 mmol/L (8-16); Blood Urea Nitrogen 14 mg/dL (7-17); Calcium 8.7 mg/dL (8.4-10.2); Carbon Dioxide 29 mmol/L (22-30); Chloride 101 mmol/L (98-107); Estimated CRCL calculation 73 ml/min; Estimated Glomerular Filt Rate > 60; Glucose 106 mg/dL (65-105); Sodium 136 mmol/L (137-145)
[2020-07-19] MEDS: dilTIAZem HCL TAB 30 MG, dilTIAZem HCL TAB 60 MG 90 MG PO ×2 (05:32→13:29)
[2020-07-19] MEDS: oxyCODONE HCL (*CRX) 5 MG TAB IR PO ×2 (05:33→13:32)
[2020-07-19] MEDS: ACETAMINOPHEN 500 MG TABLET 1000 MG PO ×2 (09:22→13:30)
[2020-07-19] MEDS: APIXABAN 5 MG TABLET PO (09:24)
[2020-07-19] MEDS: guaiFENesin 12 HR 600 MG TABCR PO (09:24)
[2020-07-19] MEDS: FLUTICASONE PROPIONATE 0.05% NA SPR 16 GM BTL (*BKC) 1 SPRAY NASAL (09:24)
[2020-07-19] MEDS: CHOLECALCIFEROL 1,000 UNITS TABLET 1000 UNITS PO (09:24)
[2020-07-19] MEDS: METOPROLOL TARTRATE 25 MG TABLET PO (09:25)
[2020-07-19] MEDS: LORATADINE 10 MG TABLET PO (09:25)
[2020-07-19] MEDS: LIDOCAINE 5% PATCH 1 PATCH TOPICAL (09:25)
--- NOTE | 2020-07-19 09:36 | PM.PNCARD ---
Progress Note: A&P Assessment and Plan (1) Ascending aorta dilation: Code(s): I77.810 - Thoracic aortic ectasia Status: Acute Assessment and Plan: measuring 4.3 cm, needs clinical follow-up in the future (2) Atrial fibrillation with rapid ventricular response: Code(s): I48.91 - Unspecified atrial fibrillation Status: Acute Assessment and Plan: rate improved wilth Cardizem, will add digoxin Had ECHO at [facility] which showed normal left ventricular function but showed mild dilatation of the left atrium and mild dilatation of the aorta cont anticoagulation with Eliquis (3) Hypertension: Code(s): I10 - Essential (primary) hypertension Status: Acute Assessment and Plan: well controlled now with metoprolol and Cardizem (4) Multiple rib fractures: Code(s): S22.49XA - Multiple fractures of ribs, unspecified side, initial encounter for closed fracture Status: Acute Assessment and Plan: Management per PC Pt appears stable from cardiac standpoint to be transferred to rehab. Subjective Date/time seen: 07/19/20 09:36 Pt feels fine today. Denies CP, SOB or palpitations. Undergoing breathing treatment. Pt was seen and examined, chart was reviewed, case d/w pt's nurse. Plans to transfer back to rehab today. Review of Systems Review of Systems: All systems reviewed & are unremarkable except as noted in HPI and below Constitutional: Constitutional: Reports as per HPI Eyes: Eyes: Reports as per HPI ENT: Reports system reviewed and no additional complaints, except as documented and Reports as per HPI Cardiovascular: Cardiovascular: Reports as per HPI Respiratory: Respiratory: Reports as per HPI Gastrointestinal: Gastrointestinal: Reports as per HPI Genitourinary: Genitourinary: Reports as per HPI Musculoskeletal: Musculoskeletal: Reports as per HPI Exam Const: General: no acute distress Nutritional Appearance: well nourished Orientation/consciousness: patient oriented x3 HENMT: Head: normal to inspection and atraumatic Ears: hearing grossly normal bilaterally Face and sinus: normal facial exam Eyes: General: appearance normal, both eyes and all related structures Pupils: Equal, round and reactive pupils present EOM: EOMs intact bilaterally Neck: Neck: supple Chest: Chest palpation & inspection: normal inspection of the chest Resp: Effort & Inspection: normal respiratory effort and no respiratory distress Auscultation: clear to auscultation bilaterally Cardio: Jugular venous distension: no JVD Heart sounds: no murmurs Peripheral pulses: Peripheral pulses 2+ throughout Other: irregularly irregular GI: GI Palp: No abdominal tenderness Auscultation: normal bowel sounds Skin: General skin exam: normal color Neuro: General: patient oriented x3 Cranial nerves: Yes Equal, round and reactive pupils present Extrem: General: normal to inspection and no clubbing, cyanosis or edema Objective Data Vital Signs Vital Signs: Vital Signs - 24 hr 07/18/20 09:49 07/18/20 10:00 07/18/20 12:00 Temperature 36.2 C L Pulse Rate 142 H 139 H 100 Respiratory Rate 18 Blood Pressure 113/61 Pulse Oximetry 95 07/18/20 14:00 07/18/20 14:51 07/18/20 15:00 Temperature Pulse Rate 100 86 81 Respiratory Rate 16 16 Blood Pressure Pulse Oximetry 07/18/20 16:00 07/18/20 18:00 07/18/20 19:15 Temperature 36.2 C L Pulse Rate 103 H 104 H 105 H Respiratory Rate 12 16 Blood Pressure 122/97 H Pulse Oximetry 94 07/18/20 19:20 07/18/20 19:47 07/18/20 20:00 Temperature 36.3 C L Pulse Rate 98 96 104 H Respiratory Rate 16 16 16 Blood Pressure 112/68 Pulse Oximetry 93 93 07/18/20 20:18 07/18/20 22:00 07/19/20 00:00 Temperature 36.4 C Pulse Rate 153 H 89 88 Respiratory Rate 18 Blood Pressure 112/82 Pulse Oximetry 95 07/19/20 01:17 07/19/20 01:24 07/19/20 02:00 Temperature Pulse Rate 87 90 94 Resp
[2020-07-19] MEDS: DIGOXIN 250 MCG TABLET PO (13:29)
--- NOTE | 2020-07-19 13:51 | PM.DS ---
DS: Admitting Diagnosis Admitting Diagnosis Admitting Diagnosis: AF with RVR 74-year-old lady with history of recent CVA, and history of atrial fibrillation, was in rehab getting physical therapy and treatment, noted to have atrial fibrillation with rapid ventricular response she was having significant shortness of breath and fatigue. Pt fell broke the ribs had a vats procedure. Now is in af, cannot have anticoagulation as she had a hemorrhage. Pt seen by cardiology can start on digoxin and diltiazem. DS: Discharge Diagnosis Discharge Diagnosis (1) Atrial fibrillation with rapid ventricular response: Code(s): I48.91 - Unspecified atrial fibrillation Status: Acute Assessment and Plan: Pt was on a diltiazem drip transition to digoxin, diltiazem and continue on metoprolol orally. I will stop apixaban as she has a history of brain hemorrhage. (2) Hypertension: Code(s): I10 - Essential (primary) hypertension Status: Chronic Assessment and Plan: On metoprolol (3) Ascending aorta dilation: Code(s): I77.810 - Thoracic aortic ectasia Status: Chronic (4) Multiple rib fractures: Code(s): S22.49XA - Multiple fractures of ribs, unspecified side, initial encounter for closed fracture Status: Chronic Assessment and Plan: Lidoderm patch, discharge to [facility] for further rehab. (5) Anemia: Code(s): D64.9 - Anemia, unspecified Status: Acute Assessment and Plan: Continue to watch Hb (6) Allergic rhinitis: Code(s): J30.9 - Allergic rhinitis, unspecified Status: Acute Assessment and Plan: On fluticasone DS: Summary Time Spent with Patient Time attestation: Total time spent providing and/or coordinating discharge services: 40 minutes on day of discharge Exam Const: General: cooperative and healthy appearing; No in distress Nutritional Appearance: overweight Orientation/consciousness: oriented to person Resp: Effort & Inspection: no respiratory distress and other (some splinting ) Auscultation: no rhonchi and no wheezes Cardio: Rate: tachycardic Rhythm: abnormal rhythm GI: Inspection: normal to inspection Auscultation: normal bowel sounds Neuro: General: oriented to person DS: Data Data Completed and Pending Labs on day of discharge: Labs from last 24 hours 07/19/20 07/19/20 04:36 04:36 WBC 5.9 RBC 2.83 L Hgb 9.0 L Hct 28.8 L MCV 101.8 H MCH 31.8 MCHC 31.3 L RDW 15.1 H Plt Count 443 H MPV 8.9 Sodium 136 L Potassium 4.0 Chloride 101 Carbon Dioxide 29 Anion Gap 6 L BUN 14 Creatinine 0.70 Estim Creat Clear Calc 73 Estimated GFR > 60 Glucose 106 H Calcium 8.7 Discharge Plan Discharge Attending physician on discharge: Jenny Campa Consulting providers: Ventura Leon Discharging Clinician: Jenny Campa Anticipated Discharge Date/Time: 07/19/20 13:34 Patient Disposition: Inpatient Rehab Facility Activity: as tolerated Diet: heart healthy Patient Instructions: Apixaban (By mouth) Stand Alone Forms: General Discharge Information Follow-up/Referrals: Ventura Leon MD [Physician] - Nguyễn,Sandra Villafana MD [Primary Care Provider] - Discharge Medications: New fluticasone propionate 50 mcg/actuation [place],Suspension 1 spray intranasal Q12HR Qty: 9.9 RF: 0 loratadine 10 mg Tablet 10 mg PO QAM Qty: 30 RF: 0 diltiazem HCl 90 mg Tablet 90 mg PO Q6HR Qty: 120 RF: 0 digoxin 125 mcg (0.125 mg) Tablet 125 mcg PO QAM Qty: 60 RF: 0 Continued polyethylene glycol 3350 [Miralax] 17 gram Powder In Packet 17 g PO DAILY RF: 0 acetaminophen 500 mg Tablet 1,000 mg PO TID RF: 0 lidocaine [Lidoderm] 5 % Adhesive Patch,Medicated 1 patch TOPICAL DAILY RF: 0 oxycodone 5 mg Tablet 5 mg PO Q4H PRN (Reason: Pain) RF: 0 metaxalone 800 mg Tablet 800 mg PO TID PRN (Reason: Muscle Spas
--- NOTE | 2020-07-19 16:21 | PCDIET ---
pt discharged to [facility] 225-1. Spouse at bedside, belongings packed by spouse and taken to pts new room. Report given to Dori SANTAMARIA.
--- NOTE | 2020-08-01 15:37 | PM.DS ---
DS: Admitting Diagnosis Admitting Diagnosis Admitting Diagnosis: 74 years old lady admitted to the acute rehab of [facility] with right-sided multiple rib fractures secondary to fall in addition to the history of underlying atrial fibrillation, hypertension, he was involved in the physical therapy and occupational therapy on the rehab floor and did fairly well with no specific complaints or problem during the entire hospitalization at the time of admission her measures were as follows Eating independent Oral Care substantial Toileting Hygiene partial assistance Shower/Bathing substantial Upper Body Dressing substantial Lower Body Dressing substantial Donning/[place] Footwear substantial Rolling Left and Right supervision Sit to Lying supervision Lying to Sitting partial assistance Sit to Stand partial assistance chair transfer partial assistance Toilet Transfers partial assistant men's soccer coach Car Transfers super Walking 10' substantial assistance Walking 50' with Two Turns substantial assistance Walking 150' unable to do so walking 110ft uneven surfaces required substantial assistant men's soccer coach Curb or Step supervising 4 Steps supervision 12 Steps patient was unable to do so Picking Up Object substantial [Wheelchair Mobility 50'] not applicable [Wheelchair Mobility 150'] GOALS: Eating [INDEPENDENT] Oral Care [INDEPENDENT] Toileting Hygiene [INDEPENDENT] Shower/Bathing [INDEPENDENT] Upper Body Dressing [INDEPENDENT] Lower Body Dressing [INDEPENDENT] Donning/[place] Footwear [INDEPENDENT] Rolling Left and Right [INDEPENDENT] Sit to Lying [INDEPENDENT] Lying to Sitting [INDEPENDENT] Sit to Stand [INDEPENDENT] Bed to Chair Transfers [INDEPENDENT] Toilet Transfers [INDEPENDENT] Car Transfers [INDEPENDENT] Walking 10' [INDEPENDENT] Walking 50' with Two Turns [INDEPENDENT] Walking 150' [INDEPENDENT] Curb or Step [INDEPENDENT] 4 Steps [INDEPENDENT] 12 Steps [INDEPENDENT] Picking Up Object [INDEPENDENT] [Wheelchair Mobility 50'] [INDEPENDENT] [Wheelchair Mobility 150'] [INDEPENDENT] DISCHARGE PERFORMANCE: Eating [INDEPENDENT] Oral Care [INDEPENDENT] Toileting Hygiene [INDEPENDENT] Shower/Bathing [INDEPENDENT] Upper Body Dressing [INDEPENDENT] Lower Body Dressing [INDEPENDENT] Donning/[place] Footwear [INDEPENDENT] Rolling Left and Right [INDEPENDENT] Sit to Lying [INDEPENDENT] Lying to Sitting [INDEPENDENT] Sit to Stand [INDEPENDENT] Bed to Chair Transfers [INDEPENDENT] Toilet Transfers [INDEPENDENT] Car Transfers [INDEPENDENT] Walking 10' [INDEPENDENT] Walking 50' with Two Turns [INDEPENDENT] Walking 150' [INDEPENDENT] Curb or Step supervision 4 Steps supervision 12 Steps supervision Picking Up Object [INDEPENDENT] [Wheelchair Mobility 50'] not applicable [Wheelchair Mobility 150'] The patient had [no falls]. DS: Summary Time Spent with Patient Time attestation: Total time spent providing and/or coordinating discharge services: Exam Narrative: Exam Narrative: throughout the hospitalization she remained stable at the time of discharge she was awake alert cooperative in no acute distress her neck was supple with no restriction of the range of motions heart was regular with no murmur lungs were clear with no rhonchi or crepitation abdomen was soft nontender with normal bowel sounds and neurological examination was essentially unchanged she was involved in the therapy actively she was discharged to home with outpatient therapy during the entire hospitalization she has no fall or injuries and her condition definitely improved Discharge Plan Discharge Attending physician on discharge: Jenny Campa Consulting providers: [place] Leon ; Yaritza Sanchez ; German Rose Discharging Clinician: Jenny Campa Anticipated Discharge Date/Time: 07/19/20 13:34 Patient Disposition: [facility] ([facility] Rehab) Activity: as tolerated Diet: heart healthy Discharge Instructions: STOP ELITAM Romo
== END 2020-07-19 16:33 | DRG 309 ==
PROVIDERS: Admitting Provider Internal Medicine; PCP Family Medicine; Visit Provider Family Medicine
DX: I48.20 Chronic atrial fibrillation, unspecified (principal); S22.49XA Multiple fractures of ribs, unspecified side, initial encounter for closed fracture; I69.398 Other sequelae of cerebral infarction; R20.2 Paresthesia of skin; I10 Essential (primary) hypertension; D64.9 Anemia, unspecified; J30.9 Allergic rhinitis, unspecified; I77.819 Aortic ectasia, unspecified site; X58.XXXA Exposure to other specified factors, initial encounter
CPT/HCPCS: 36415; 80048; 85027; 94640; A9270